=== PATIENT | female | born 1930 | race Caucasian/White ===

== ENCOUNTER 2018-03-07 12:58 | Inpatient (IN) | payer OTHER ==
[2018-03-07] MEDS ORDERED: ALBUTEROL 2.5 MG/3 ML NEB SOL ONE (13:28)
--- NOTE | 2018-03-07 13:52 | RAD REPORT ---
EXAM DESCRIPTION: RAD - Chest Single View - 03/07/2018 1:24 pm CLINICAL HISTORY: COUGH Chest pain. COMPARISON: None FINDINGS: Portable technique limits examination quality. Ill-defined opacity is present in the medial right lung base and right mid lung, suspicious for pneum onia or aspiration. The heart is normal in size. No displaced fractures.Aortic atherosclerosis.
[2018-03-07 14:11] LABS: Absolute Lymphocytes (CBC) 1.9 K/uL (0.7-4.9); Absolute Monocytes 1.8 K/uL (0.1-1.3); Absolute Neutrophil 18.4 K/uL (1.8-8.0); Basophils % 0.2 % (0-1.3); Eosinophils % 0.1 % (0-4.4); Hematocrit 39.7 % (36.0-45.0); Lymphocytes % 8.5 % (15.3-44.8); MCH 30.3 pg (27.0-35.0); MCV 93.1 fL (80-100); MPV 9.5 fL (7.6-11.3); Monocytes % 8.1 % (3.3-12.3); Protime INR 1.11; RBC Red Blood Cell Count 4.27 M/uL (3.86-4.86)
[2018-03-07 14:44] LABS: ALT/SGPT 11 U/L (12-78); AST/SGOT 18 U/L (15-37); Albumin 1.9 g/dL (3.4-5.0); Alkaline Phosphatase 105 U/L (45-117); Amylase Level 59 U/L (25-115); BUN Blood Urea Nitrogen 27 mg/dL (7-18); Bicarbonate 31 mmol/L (21-32); Bilirubin Direct 0.2 mg/dL (0-0.2); Bilirubin Total 0.5 mg/dL (0.2-1.0); CKMB Creatine Kinase MB < 1.0 ng/mL (0.3-3.6); Creatine Phosphokinase 37 U/L (26-192); Glucose Level 145 mg/dL (74-106); Lipase 42 U/L (73-393); Potassium 4.3 mmol/L (3.5-5.1); Protein, Total 6.9 g/dL (6.4-8.2); Sodium Level 143 mmol/L (136-145)
[2018-03-07 14:49] LABS: Blood Morphology Comment NOT SEEN (NOT SEEN); Platelet Estimate ADEQ
[2018-03-07 14:59] LABS: Urine Blood 2+ (NEG); Urine Glucose NEGATIVE (NEG); Urine Protein 3+ (NEG); Urine Specific Gravity 1.025 (1.005-1.030)
[2018-03-07 15:04] LABS: Urine Bacteria >50 /HPF (<20); Urine RBC >50 /HPF (NONE SEEN)
[2018-03-07 15:05] LABS: Urine Mucus 1+ /HPF (NONE SEEN)
[2018-03-07] MEDS ORDERED: CLINDAMYCIN 900MG/D5W 900 MG/50 ML BAG IV ONE (15:05)
[2018-03-07] MEDS ORDERED: levoFLOXacin 750 MG TAB ONE (15:05)
[2018-03-07] MEDS ORDERED: NA CHLORIDE 0.9% 500 ML ONE (15:05)
[2018-03-07] MEDS ORDERED: NA CHLORIDE 0.9% 1,000 ML ONE (15:06)
[2018-03-07 15:08] LABS: Urine Culture Reflex Order NOT NEEDED
--- NOTE | 2018-03-07 15:47 | ER ---
Nurse's Notes [facility] Name: Roselia Boyle Age: 87 yrs Sex: Female : 1930 Arrival Date: 03/07/2018 Time: 13:07 Bed 14 Private MD: Diagnosis: Pneumonia, unspecified organism;hypoxia Presentation: 03/07 12:57 Presenting complaint: EMS states: EMS was called out due to AMS worse than normal and rb1 breathing difficulties. Pt. is 87 yr. from [facility]. Pt. is A \T\ O x 1-2, right now she is A \T\ O x 2. Was running fever yesterday, the facility did a CXR and it showed patchy infiltrations. Pt. was 83% on RA, administered Albuterol/Atrovent nebulizer, Solu-Medrol 125 mg IVP. HR is sinus tachycardia, cough with thick green sputum. 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 Presenting complaint: EMS states: 20 G L AC. Transition of care: patient was received from another setting of care (long-term care facility), [facility]. Onset of symptoms is unknown. Risk Assessment: Do you want to hurt yourself or someone else? Patient reports no desire to harm self or others. Care prior to arrival: Medication(s) given: Albuterol Neb Atrovent Neb Solu-Medrol 125 mg IVP. 12:57 Method Of Arrival: EMS: [facility] rb1 12:57 Acuity: HANS 3 rb1 12:57 Initial Sepsis Screen: Does the patient meet any 2 criteria? RR > 20 per min. Altered rb1 Mental Status. HR > 90 bpm. Yes Does the patient have a suspected source of infection? Yes: Productive cough/pneumonia If YES to both, name of provider notified: Estelle Carrillo SPRINKLER INSTALLER. Triage Assessment: 12:57 General: Appears in no apparent distress. Behavior is calm, cooperative, Reports fever rb1 for. Pain: Denies pain. EENT: Reports bilateral blindness. Neuro: Level of Consciousness is awake, obeys commands, Oriented to person, place. Cardiovascular: Capillary refill < 3 seconds is brisk in bilateral fingers Rhythm is sinus tachycardia. Respiratory: Airway is patent Respiratory effort is even, labored, Respiratory pattern is symmetrical. GI: No signs and/or symptoms were reported involving the gastrointestinal system. : Wears a brief. Derm: Skin is pink, warm \T\ dry. Historical: - Allergies: 15:26 PENICILLINS; iw - Home Meds: 15:26 dorzolamide 2 % ophthalmic drop twice a day [Active]; Exelon 6 mg Oral cap 1 cap 2 iw times per day [Active]; hydrocortisone 1 % Topical crea 2 times per day [Active]; Levaquin 500 mg Oral tab 1 tab once daily [Active]; levothyroxine 75 mcg tab 1 tab once daily [Active]; lisinopril 2.5 mg Oral tab 1 tab once daily [Active]; loratadine 10 mg oral tab 1 tab once daily [Active]; lorazepam 0.5 mg Oral tab 1 tab 2 times per day [Active]; Lumigan 0.01 % ophthalmic drop nightly [Active]; melatonin 3 mg Oral tab nightly [Active]; Acidophilus Oral cap daily [Active]; aspirin 81 mg Oral TbEC 1 tab once daily [Active]; Colace 100 mg oral cap 1 cap 2 times per day [Active]; Combigan 0.2-0.5 % ophthalmic drop 1 drop every 12 hours [Active]; Depakote Sprinkles 125 mg Oral cpSP twice a day [Active]; Miralax 17 gram Oral pwpk 1 packet once daily [Active]; Restasis 0.05 % ophthalmic dpet as needed [Active]; sennosides 8.6 mg oral tab 2 tabs once daily [Active]; Seroquel 25 mg Oral tab nightly [Active]; sertraline 100 mg oral tab 1 tab once daily [Active]; acetaminophen-codeine 300-30 mg Oral tab 1 tab every 4 hours [Active]; - PMHx: 15:26 Dementia; IBS; Glaucoma; Hypothyroidism; Depression; Anxiety; iw - PSHx: 16:54 rakesh knees; iw - Immunization history:: Adult Immunizations up to date. - Social history:: Smoking status: Patient/guardian denies using tobacco. - Ebola Screening: : Patient negative for fever greater than or equal to 101.5 degrees Fahrenheit, and additional compatible Ebola Virus Disease symptoms Patient denies exposure to infectious person Patient denies travel to an Ebola-affected area in the 21 days before illness onset No symptoms or risks identified at this time. Screenin:55 Abuse screen: Denies threats or abuse. Denies injuries from another. Nutritional iw screening: No deficits noted. Tuberculosis screening: No symptoms or risk factors identified. Fall Risk IV access (20 points). Assessment: 12:57 General: See triage assessment.. rb1 13:48 Reassessment: Patient appears in no apparent distress at this time. Patient and/or rb1 family updated on plan of care and expected duration. Pain level reassessed. Patient is alert, oriented x 3, equal unlabored respirations, skin warm/dry/pink. Patient denies pain at this time. 14:47 Reassessment: Patient appears in no apparent distress at this time. No changes from rb1 previously documented assessment. 15:49 General: Appears uncomfortable, ill, Behavior is cooperative. Neuro: Level of iw Consciousness is awake, obeys commands. Cardiovascular: Patient's skin is warm and dry. Respiratory: Airway is patent Respiratory effort is even, labored, Respiratory pattern is tachypnea Breath sounds are diminished in right middle lobe and right lower lobe. Derm: Skin is normal. 16:33 Reassessment: Patient appears in no apparent distress at this time. Patient and/or rb1 family updated on plan of care and expected duration. Pain level reassessed. Patient is alert, oriented x 3, equal unlabored respirations, skin warm/dry/pink. 17:07 Reassessment: Called report to NAWAF Nash. Information from the SBAR was given. Informed rb1 that sputum culture had not been collected yet and that I was sending the Vancomycin IV antibiotics to the floor with the pt because it had been brought to the ED. Also informed NAWAF Nash that I initiated the Sepsis Green Sheet and would be sending that to the floor also. Pt. currently has Zosyn 3.375 IV infusing at this time. All questions asked and answered. 17:21 Reassessment: Patient appears in no apparent distress at this time. No changes from rb1 previously documented assessment. Pt. is coughing but unable to spit up the sputum. Vital Signs: 13:00 BP 125 / 65; Pulse 100; Resp 26; Temp 98.3(A); Pulse Ox 93% on Nebulizer Mask; Pain rb1 0/10; 14:00 BP 113 / 64; Pulse 102; Resp 27; Pulse Ox 93% on 4% Simple Mask; rb1 15:00 BP 120 / 62; Pulse 103; Resp 25; Pulse Ox 92% on 4 lpm NC; rb1 15:51 BP 121 / 55; Pulse 104; Resp 26 S; Temp 97.8(TE); Pulse Ox 92% on 2 lpm NC; Pain 0/10; iw 16:17 Weight 102.06 kg; Height 5 ft. 5 in. (165.10 cm); iw 16:45 BP 103 / 65; Pulse 100; Resp 28; Pulse Ox 93% on 2 lpm NC; rb1 17:00 BP 118 / 70; Pulse 100; Resp 26; Pulse Ox 93% on R/A; Pain 0/10; rb1 16:17 Body Mass Index 37.44 (102.06 kg, 165.10 cm) iw ED Course: 12:57 Arm band placed on right wrist. rb1 12:57 Patient has correct armband on for positive identification. Placed in gown. Bed in low rb1 position. Call light in reach. Side rails up X2. panel monitor on. Pulse ox on. NIBP on. Warm blanket given. 12:57 Maintain EMS IV. Dressing intact. Good blood return noted. Site clean \T\ dry. Gauge \T\ rb 1 site: 20 G L AC. 13:07 Patient arrived in ED. rh1 13:07 Estelle Carrillo NP is PHCP. rh1 13:07 Chase Gould MD is Attending Physician. rh1 13:14 Ofelia Louis, RN is Primary Nurse. rb1 13:20 Triage completed. rb1 13:24 Chest Single View XRAY In Process Unspecified. EDMS 13:38 X-ray completed. Portable x-ray completed in exam room. Patient tolerated procedure la2 well. 14:07 First set of blood cultures drawn by ED staff, by venipuncture 23G to right wrist. dh3 14:15 lactate drawn by mi and sent to lab. dh3 14:22 Second set of blood cultures drawn by mi, by venipuncture 23G to right hand. dh3 14:48 Urine collected: straight cath specimen, cloudy, penelope colored, sediment noted. dh3 15:01 EKG done, by ED staff, reviewed by Estelle Carrillo SPRINKLER INSTALLER. dh3 15:46 Preeti Carlin MD is Hospitalizing Provider. rh1 17:26 No provider procedures requiring assistance completed. Patient admitted, IV remains in rb1 place. Administered Medications: 13:20 Drug: Albuterol 2.5 mg Route: Inhalation; rb1 13:45 Drug: Albuterol 2.5 mg Route: Inhalation; rb1 14:12 Drug: Albuterol 2.5 mg Route: Inhalation; rb1 14:57 CANCELLED (Physician Discretion): NS 0.9% 1000 ml IV at 75 ml/hr continuous rh1 15:10 Drug: Clindamycin 900 mg Route: IVPB; Infused Over: 30 mins; Site: left antecubital; rb1 15:44 Follow up: IV Status: Completed infusion rb1 15:44 Follow up: Response: No adverse reaction rb1 15:10 Drug: LevaQUIN 750 mg Route: PO; rb1 15:48 Follow up: Response: No adverse reaction rb1 15:10 Drug: NS 0.9% 250 ml Route: IV; Rate: 500 ml/hr; Site: left antecubital; rb1 15:40 Follow up: IV Status: Completed infusion rb1 15:48 Drug: NS 0.9% 1000 ml Route: IV; Rate: 75 ml/hr; Site: left antecubital; iw 17:26 Follow up: IV Status: Infusion continued upon admission rb1 Point of Care Testing: Blood Glucose: 13:36 Blood Glucose: 130 mg/dL; rb1 Ranges: Outcome: 15:47 Decision to Hospitalize by Provider. rh1 17:26 Patient left the ED. rb1 17:26 Admitted to Tele accompanied by tech, via stretcher, room 425, with oxygen, with chart, rb1 Report called to NAWAF Nash 17:26 Condition: stable 17:26 Instructed on the need for admit. Signatures: Dispatcher [employer] Shana Ramos RN RN iw Jones, Rachel, NP SPRINKLER INSTALLER rh1 Ofelia Louis RN RN rb1 Almita Rodriguez [address] [place] Corrections: (The following items were deleted from the chart) 15:56 15:51 BP 121 / 55; Pulse 104bpm; Resp 26bpm; Spontaneous; Pulse Ox 92% RA; Temp 97.8F iw Temporal; Pain 0/10; iw 17:39 17:07 Reassessment: Called report to NAWAF Nash. Information from the SBAR was given. rb1 Informed that sputum culture had not been collected yet and that I was sending the Vancomycin IV antibiotics to the floor with the pt because it had been brought to the ED. Pt. currently has Zosyn 3.375 IV infusing at this time. All questions asked and answered. rb1
--- NOTE | 2018-03-07 15:48 | EDPHYS ---
Physician Documentation [facility] Name: Roselia Boyle Age: 87 yrs Sex: Female : 1930 Arrival Date: 03/07/2018 Time: 13:07 Bed 14 Private MD: ED Physician Chase Gould HPI: 03/07 13:07 This 87 yrs old Female presents to ER via EMS with complaints of cough, fever.rh1 13:07 The patient or guardian reports cough, described as moderate, hypoxia on RA. Onset: The rh1 symptoms/episode began/occurred yesterday. Modifying factors: The symptoms are alleviated by nothing. the symptoms are aggravated by nothing. Associated signs and symptoms: Pertinent positives: fever, Pertinent negatives: chest pain, vomiting. Severity of symptoms: At their worst the symptoms were moderate in the emergency department the symptoms are unchanged. It is unknown whether or not the patient has had similar symptoms in the past. It is unknown whether or not the patient has recently seen a physician. She was sent from [place], she reports for fever and coughing. Per EMS report she had a chest xray yesterday showing possible right infiltrate, was started on oral levaquin, but has not improved today. Her O2 sat on RA was 86%, and increased with neb treatment and O2 via EMS.. Historical: - Allergies: 15:26 PENICILLINS; iw - Home Meds: 15:26 dorzolamide 2 % ophthalmic drop twice a day [Active]; Exelon 6 mg Oral cap 1 cap 2 iw times per day [Active]; hydrocortisone 1 % Topical crea 2 times per day [Active]; Levaquin 500 mg Oral tab 1 tab once daily [Active]; levothyroxine 75 mcg tab 1 tab once daily [Active]; lisinopril 2.5 mg Oral tab 1 tab once daily [Active]; loratadine 10 mg oral tab 1 tab once daily [Active]; lorazepam 0.5 mg Oral tab 1 tab 2 times per day [Active]; Lumigan 0.01 % ophthalmic drop nightly [Active]; melatonin 3 mg Oral tab nightly [Active]; Acidophilus Oral cap daily [Active]; aspirin 81 mg Oral TbEC 1 tab once daily [Active]; Colace 100 mg oral cap 1 cap 2 times per day [Active]; Combigan 0.2-0.5 % ophthalmic drop 1 drop every 12 hours [Active]; Depakote Sprinkles 125 mg Oral cpSP twice a day [Active]; Miralax 17 gram Oral pwpk 1 packet once daily [Active]; Restasis 0.05 % ophthalmic dpet as needed [Active]; sennosides 8.6 mg oral tab 2 tabs once daily [Active]; Seroquel 25 mg Oral tab nightly [Active]; sertraline 100 mg oral tab 1 tab once daily [Active]; acetaminophen-codeine 300-30 mg Oral tab 1 tab every 4 hours [Active]; - PMHx: 15:26 Dementia; IBS; Glaucoma; Hypothyroidism; Depression; Anxiety; iw - PSHx: 16:54 rakesh knees; iw - Immunization history:: Adult Immunizations up to date. - Social history:: Smoking status: Patient/guardian denies using tobacco. - Ebola Screening: : Patient negative for fever greater than or equal to 101.5 degrees Fahrenheit, and additional compatible Ebola Virus Disease symptoms Patient denies exposure to infectious person Patient denies travel to an Ebola-affected area in the 21 days before illness onset No symptoms or risks identified at this time. ROS: 13:07 Cardiovascular: Negative for chest pain, palpitations, and edema. rh1 13:07 Constitutional: Positive for fever, malaise. 13:07 Respiratory: Positive for cough, wheezing. 13:07 Abdomen/GI: Negative for abdominal pain, vomiting. 13:07 Skin: Negative for diaphoresis, rash. 13:07 Neuro: Negative for altered mental status. Exam: 13:07 Constitutional: This is a well developed, well nourished patient who is awake, and in rh1 no acute distress. Head/Face: Normocephalic, atraumatic. 13:07 Neck: Trachea midline, and no cervical lymphadenopathy. Supple, full range of motion without nuchal rigidity. No Meningismus. Chest/axilla: Normal chest wall appearance and motion. Nontender with no deformity. No lesions are appreciated. Cardiovascular: Regular rate and rhythm with a normal S1 and S2. No gallops, murmurs, or rubs. No JVD. No pulse deficits. 13:07 Abdomen/GI: Soft, non-tender, with normal bowel sounds. No distension. No guarding or rebound. No evidence of tenderness throughout. Back: No spinal tenderness. No costovertebral tenderness. Full range of motion. 13:07 Skin: Warm, dry with normal turgor. Normal color with no rashes, no lesions, and no evidence of cellulitis. MS/ Extremity: Pulses equal, no cyanosis. Neurovascular intact. Full, normal range of motion. 13:07 Eyes: bilateral pupils fixed, minimally reactive, with thick yellow drainage from bilateral eyes; reports hx of glaucoma, with bilateral blindness. 13:07 ENT: Mouth: Lips: dry, cracked, Oral mucosa: dry, Tongue: dry, without lesions, Posterior pharynx: is normal, airway is patent, no erythema, no exudate. 13:07 Respiratory: the patient does not display signs of respiratory distress, Respirations: labored breathing, that is mild, accessory muscle usage, is absent, grunting, is not present, paradoxical chest movement, is absent, prolonged exhalation, that is mild, pursed lip breathing, is not present, intercostal retractions, are absent, tachypnea, mild - moderate tachypnea, rate 24 - 28, Breath sounds: decreased breath sounds, that are moderate, are located in both bases, rhonchi, that are moderate, are located in both bases, right > left, wheezing: expiratory that is moderate, is heard diffusely. 13:07 Abdomen/GI: Inspection: bruising, is not seen, distension, is not seen. 13:07 Back: Exam negative for ecchymosis vertebral tenderness. 13:07 Neuro: Orientation: to person, place, situation, Not oriented to time, Mentation: no acute changes, per family, lucid, able to follow commands, Motor: moves all fours, Strength is 3/5 in the right arm, left arm, right leg and left leg, Sensation: is normal, no obvious gross deficits. 13:07 Neuro: overall answers questions appropriately, appears lethargic. Vital Signs: 13:00 BP 125 / 65; Pulse 100; Resp 26; Temp 98.3(A); Pulse Ox 93% on Nebulizer Mask; Pain rb1 0/10; 14:00 BP 113 / 64; Pulse 102; Resp 27; Pulse Ox 93% on 4% Simple Mask; rb1 15:00 BP 120 / 62; Pulse 103; Resp 25; Pulse Ox 92% on 4 lpm NC; rb1 15:51 BP 121 / 55; Pulse 104; Resp 26 S; Temp 97.8(TE); Pulse Ox 92% on 2 lpm NC; Pain 0/10; iw 16:17 Weight 102.06 kg; Height 5 ft. 5 in. (165.10 cm); iw 16:45 BP 103 / 65; Pulse 100; Resp 28; Pulse Ox 93% on 2 lpm NC; rb1 17:00 BP 118 / 70; Pulse 100; Resp 26; Pulse Ox 93% on R/A; Pain 0/10; rb1 16:17 Body Mass Index 37.44 (102.06 kg, 165.10 cm) iw MDM: 13:07 Patient medically screened. rh1 13:35 ED course: Pt. son, victoria, at bedside, reports over the past 3 days she has had a rh1 cough, and today began with fever. Last night she was weak, and has not been wanting to eat. He is not sure if she has gotten any abx as of yet. 14:50 Response to treatment: the patient's symptoms have mildly improved after treatment, she rh1 reports her breathing is improved after breathing tx. 15:45 Data reviewed: vital signs, nurses notes, half-way records, lab test result(s), rh1 EKG, radiologic studies, plain films, and as a result, I will admit patient. Data interpreted: Pulse oximetry: on room air is 94 %. Interpretation: normal. Counseling: I had a detailed discussion with the patient and/or guardian regarding: the historical points, exam findings, and any diagnostic results supporting the discharge/admit diagnosis, lab results, radiology results, the need for further work-up and treatment in the hospital. Physician consultation: Preeti Carlin MD was called at 15:45, was contacted at 15:45, regarding admission, and will see patient in ED, shortly. 03/07 13:08 Order name: Sputum Culture 03/07 13:08 Order name: Amylase, Serum 03/07 13:08 Order name: Basic Metabolic Panel 03/07 13:08 Order name: Blood Culture Adult (2) 03/07 13:08 Order name: CBC with Diff 03/07 13:08 Order name: Ckmb 03/07 13:08 Order name: CPK; Complete Time: 14:50 03/07 13:08 Order name: Lactate; Complete Time: 14:50 [facility] 03/07 13:08 Order name: LFT's; Complete Time: 14:50 [facility] 03/07 13:08 Order name: Lipase; Complete Time: 14:50 [facility] 03/07 13:08 Order name: Procalcitonin; Complete Time: 14:50 [facility] 03/07 13:08 Order name: Protime (+inr); Complete Time: 14:29 [facility] 03/07 13:08 Order name: Ptt, Activated; Complete Time: 14:29 [facility] 03/07 13:08 Order name: Troponin (emerg Dept Use Only); Complete Time: 14:30 [facility] 03/07 13:08 Order name: Chest Single View XRAY; Complete Time: 13:58 [facility] 03/07 13:09 Order name: Sputum Culture [facility] 03/07 13:09 Order name: Amylase Level; Complete Time: 14:50 [facility] 03/07 13:09 Order name: Basic Metabolic Panel; Complete Time: 14:50 [facility] 03/07 13:09 Order name: Blood Culture [facility] 03/07 13:09 Order name: CBC with Automated Diff; Complete Time: 14:50 [facility] 03/07 13:09 Order name: CKMB Creatine Kinase MB; Complete Time: 14:50 [facility] 03/07 13:34 Order name: TSH; Complete Time: 14:39 [facility] 03/07 14:43 Order name: Urine Microscopic Only; Complete Time: 15:10 [facility] 03/07 14:47 Order name: Manual Differential; Complete Time: 14:50 [facility] 03/07 14:50 Order name: Urine Dipstick--Ancillary (enter results); Complete Time: 15:10 03/07 15:49 Order name: Urine Culture [facility] 03/07 15:51 Order name: Influenza Screen (A [facility] 03/07 15:51 Order name: Group A Streptococcus Rapid Sc [facility] 03/07 13:08 Order name: Accucheck; Complete Time: 14:20 03/07 13:08 Order name: Cardiac monitoring; Complete Time: 14:20 [facility] 03/07 13:08 Order name: EKG - Nurse/Tech; Complete Time: 15:01 [facility] 03/07 13:08 Order name: IV Saline Lock - Large Bore; Complete Time: 13:23 03/07 13:08 Order name: Labs collected and sent; Complete Time: 14:20 03/07 13:08 Order name: O2 Per Protocol; Complete Time: 14:20 03/07 13:08 Order name: O2 Sat Monitoring; Complete Time: 14:20 03/07 13:08 Order name: Urine Dipstick-Ancillary (obtain specimen); Complete Time: 14:20 03/07 14:09 Order name: Straight Cath; Complete Time: 14:41 03/07 14:09 Order name: Vital Signs; Complete Time: 14:20 rh1 Administered Medications: 13:20 Drug: Albuterol 2.5 mg Route: Inhalation; rb1 13:45 Drug: Albuterol 2.5 mg Route: Inhalation; rb1 14:12 Drug: Albuterol 2.5 mg Route: Inhalation; rb1 14:57 CANCELLED (Physician Discretion): NS 0.9% 1000 ml IV at 75 ml/hr continuous rh1 15:10 Drug: Clindamycin 900 mg Route: IVPB; Infused Over: 30 mins; Site: left antecubital; rb1 15:44 Follow up: IV Status: Completed infusion rb1 15:44 Follow up: Response: No adverse reaction rb1 15:10 Drug: LevaQUIN 750 mg Route: PO; rb1 15:48 Follow up: Response: No adverse reaction rb1 15:10 Drug: NS 0.9% 250 ml Route: IV; Rate: 500 ml/hr; Site: left antecubital; rb1 15:40 Follow up: IV Status: Completed infusion rb1 15:48 Drug: NS 0.9% 1000 ml Route: IV; Rate: 75 ml/hr; Site: left antecubital; iw 17:26 Follow up: IV Status: Infusion continued upon admission rb1 Point of Care Testing: Blood Glucose: 13:36 Blood Glucose: 130 mg/dL; rb1 Ranges: Critical Glucose Levels:Adult <50 mg/dl or >400 mg/dl <40 mg/dl or >180 mg/dl Disposition: 17:46 Co-signature as Attending Physician, Chase Gould MD I agree with the assessment and kdr plan of care. Disposition: 03/07/18 15:47 Hospitalization ordered by Preeti Carlin for Inpatient Admission. Preliminary diagnosis are Pneumonia, unspecified organism, hypoxia. - Bed requested for Telemetry/MedSurg (Inpatient). - Status is Inpatient Admission. rb1 - Condition is Stable. - Problem is new. - Symptoms have improved. UTI on Admission? Yes Signatures: Dispatcher [employer] EDNY Chase Gould MD MD [facility] Shana Montana RN RN iw Estelle Carrillo, CARDIAC MONITOR CARDIAC MONITOR rh1 Ofelia Louis RN RN rb1 Sulema Shepard Corrections: (The following items were deleted from the chart) 14:48 14:22 CBC Smear Scan ordered. [facility] 14:50 13:35 ED course: Pt. son, victoria, at bedside, reports over the past 3 days she has had a rh1 cough, and today began with fever. Last night she was weak, and has not been wanting to eat. [facility] 14:50 13:07 She was sent from [place], she reports for fever. Per EMS report she had a chest rh1 xray showing possible right infiltrate, was started on abx, but has not improved today. Her O2 sat on RA was 86%, and increased with neb treatment and O2 via EMS.. rh1 14:57 14:56 NS 0.9% 1000 ml IV at 75 ml/hr continuous ordered. [facility] rh 16:00 15:47 Hospitalization Ordered by Preeti Carlin MD for Inpatient Admission. Preliminary eb diagnosis is Pneumonia, unspecified organism; hypoxia. Bed requested for Telemetry/MedSurg (Inpatient). Status is Inpatient Admission. Condition is Stable. Problem is new. Symptoms have improved. UTI on Admission? Yes. [facility] 16:09 16:00 03/07/2018 15:47 Hospitalization Ordered by Preeti Carlin MD for Inpatient eb Admission. Preliminary diagnosis is Pneumonia, unspecified organism; hypoxia. Bed requested for Telemetry/MedSurg (Inpatient). Status is Inpatient Admission. Condition is Stable. Problem is new. Symptoms have improved. UTI on Admission? Yes. eb 17:26 16:09 03/07/2018 15:47 Hospitalization Ordered by Preeti Carlin MD for Inpatient rb1 Admission. Preliminary diagnosis is Pneumonia, unspecified organism; hypoxia. Bed requested for Telemetry/MedSurg (Inpatient). Status is Inpatient Admission. Condition is Stable. Problem is new. Symptoms have improved. UTI on Admission? Yes. eb
--- NOTE | 2018-03-07 15:56 | P.HP ---
Certification for Inpatient Patient admitted to: Inpatient With expected LOS: >2 Midnights Patient will require the following post-hospital care: None Practitioner: I am a practitioner with admitting privileges, knowledge of patient current condition, hospital course, and medical plan of care. Services: Services provided to patient in accordance with Admission requirements found in Title 42 Section 412.3 of the Code of Federal Regulations Patient History Date of Service: 03/07/18 Primary Care Provider: [facility] - [place] Reason for admission: Sepsis History of Present Illness: This 87-year-old female with significant past medical history of hypertension, dementia, schizophrenia, anxiety, depression, agitation, who presented to the ED from the custodial with Guillermo after she was found to have generalized weakness chills coughing and general ill appearing demeanor. Patient has been having cough that has been productive in nature and has been greenish-yellow for past 2-3 days which has been getting progressively worse. Patient has also been getting dyspneic while at the custodial. She was having saturations of 80-88% on room air at the custodial. EMS was called and patient was thus brought over to the hospital for further care. Of note patient had lab work done yesterday along with CBC CMP any urine culture was done for concerns of UTI. Urine culture was positive for 4+ beta-hemolytic group B streptococcus subjective the is pending at this time. Patient at baseline is demented in generally alert and oriented times only to with intermittent confusion. Patient at baseline also has schizophrenia anxiety and depression because of which she usually gets agitated and restless. Patient lives at the custodial with Guillermo and has been doing well overall prior to this episode. No other associated symptoms at this time. In the ER patient had extensive lab work and imaging done. Patient was found to have sepsis secondary to pneumonia on the x-ray in urinary tract infection and thus was referred over for admission. Allergies Penicillins Allergy (Intermediate, Verified 03/07/18 16:22) Rash - Past Medical/Surgical History Has patient received pneumonia vaccine in the past: Yes Diabetic: No -: HTN -: Dementia -: Mental Illness Past Surgical History: Reviewed- Non-Contributory - Family History Family History: Reviewed- Non-Contributory - Social History Smoking Status: Never smoker Smoking therapy provided: No Patient receptive to therapy: No Alcohol use: No CD- Drugs: No Caffeine use: No Place of Residence: [facility] Review of Systems General: As per HPI Physical Examination - Physical Exam General: Alert, Oriented x2, Demented, Other (Ill appearing Elderly Female) HEENT: Atraumatic Neck: Supple, 2+ carotid pulse no bruit, No LAD, Without JVD or thyroid abnormality Respiratory: Normal air movement, Crackles/rales, Rhonchi/gurgles Cardiovascular: Regular rate/rhythm, Normal S1 S2 Gastrointestinal: Normal bowel sounds, Soft and benign, Non-distended, No tenderness Musculoskeletal: No tenderness Integumentary: No rashes Neurological: Normal speech, Abnormal strength, Abnormal tone Lymphatics: No axilla or inguinal lymphadenopathy - Studies Laboratory Data (last 24 hrs) 03/07/18 13:45: PT 13.1 H, INR 1.11, APTT 21.3 L 03/07/18 13:45: WBC 22.1 H*, Hgb 12.9, Hct 39.7, Plt Count 172 03/07/18 13:45: Sodium 143, Potassium 4.3, BUN 27 H, Creatinine 1.00, Glucose 145 H, Total Bilirubin 0.5, AST 18, ALT 11 L, Alkaline Phosphatase 105, Amylase 59, Lipase 42 L Assessment and Plan - Problems (Diagnosis) (1) Sepsis Current Visit: Yes Status: Acute Plan: Sepsis most likely 2.2 to UTI and PNA -PNA: Sputum Culture collected, flu and Strep test pending, IV vanc and zosyn, Pulmonology consulted. -UTI: Urine Culture from 03/06 + for group B Beta hemolytic. IV vanc and zosyn -Hypodermically stable -F.u with Lab and culture -PT/OT and speech consulted. Qualifiers: Sepsis type: sepsis due to unspecified organism Qualified Code(s): A41.9 - Sepsis, unspecified organism (2) PNA (pneumonia) Current Visit: Yes Status: Acute Plan: See # 1 Qualifiers: Pneumonia type: due to unspecified organism Laterality: right Lung location: lower lobe of lung Qualified Code(s): J18.1 - Lobar pneumonia, unspecified organism (3) UTI (urinary tract infection) Current Visit: Yes Status: Acute Plan: See # 1 Qualifiers: Urinary tract infection type: acute cystitis Hematuria presence: without hematuria Qualified Code(s): N30.00 - Acute cystitis without hematuria (4) HTN (hypertension) Current Visit: Yes Status: Chronic Plan: Restart Home medication Qualifiers: Hypertension type: essential hypertension Qualified Code(s): I10 - Essential (primary) hypertension (5) Schizophrenia Current Visit: Yes Status: Chronic Plan: Restart Home medication Qualifiers: Schizophrenia type: other Qualified Code(s): F20.89 - Other schizophrenia; F20.8 - Other schizophrenia (6) Dementia Current Visit: Yes Status: Acute Plan: Stable Qualifiers: Dementia type: unspecified type Dementia behavioral disturbance: without behavioral disturbance Qualified Code(s): F03.90 - Unspecified dementia without behavioral disturbance Discharge Plan: [facility] Plan to discharge in: 72 Hours - Advance Directives Does patient have a Living Will: No Does patient have a Durable POA for Healthcare: No - Code Status/Comfort Care Code Status Assessed: Yes Critical Care: No
[2018-03-07] MEDS ORDERED: PIPER/TAZO/NS 3.375gm 3.375 GM/100 ML BAG IV ONE (16:15)
[2018-03-07] MEDS ORDERED: VANCOMYCIN 2 GM in NA CHLORIDE 0.9% 500 ML IVPB ONE (17:00)
[2018-03-07] MEDS ORDERED: ONDANSETRON 4 MG/2 ML VIAL IV PRN (17:49)
[2018-03-07] MEDS: NA CHLORIDE 0.9% 1,000 ML IV SCH (17:49)
[2018-03-07] MEDS ORDERED: ACETAMINOPHEN 500 MG TAB PO PRN (17:49)
[2018-03-07] MEDS ORDERED: VANCOMYCIN 500 MG in NA CHLORIDE 0.9% 100 ML IVPB ONE (18:30)
[2018-03-07] MEDS ORDERED: VANCOMYCIN 500 MG/VIAL ONE (22:50)
[2018-03-07] MEDS ORDERED: NA CHLORIDE 0.9% 100 ML ONE (22:50)
[2018-03-08] MEDS: PIPER/TAZO/NS 3.375gm 3.375 GM/100 ML BAG IV SCH ×3 (00:33→17:09)
[2018-03-08] MEDS ORDERED: PIPER/TAZO/NS 3.375gm 3.375 GM/100 ML BAG IV SCH (01:00)
[2018-03-08] MEDS: NA CHLORIDE 0.9% 1,000 ML IV SCH (03:49)
[2018-03-08] MEDS ORDERED: LORazepam 2 MG/ML VIAL IV ONE ×2 (04:26→22:08)
[2018-03-08 04:42] LABS: Absolute Lymphocytes (CBC) 1.1 K/uL (0.7-4.9); Absolute Monocytes 0.7 K/uL (0.1-1.3); Absolute Neutrophil 14.1 K/uL (1.8-8.0); Basophils % 0.1 % (0-1.3); Hematocrit 36.9 % (36.0-45.0); Lymphocytes % 6.8 % (15.3-44.8); MCH 30.1 pg (27.0-35.0); MCV 93.1 fL (80-100); MPV 9.4 fL (7.6-11.3); Monocytes % 4.7 % (3.3-12.3); RBC Red Blood Cell Count 3.97 M/uL (3.86-4.86)
[2018-03-08 04:51] LABS: Albumin 1.8 g/dL (3.4-5.0); Bilirubin Total 0.4 mg/dL (0.2-1.0); Magnesium 2.2 mg/dL (1.8-2.4); Phosphorus 2.6 mg/dL (2.5-4.9); Potassium 4.3 mmol/L (3.5-5.1); Protein, Total 6.2 g/dL (6.4-8.2)
--- NOTE | 2018-03-08 09:33 | EKG ---
Test Date: 2018-03-07 Test Time: 14:55:56 Staff Certified Nurse Midwife: [place] MEASUREMENT RESULTS: Intervals: Rate: 105 MN: 126 QRSD: 96 QT: 360 QTc: 475 [place]: P: -77 MN: 126 QRS: -17 T: 46 INTERPRETIVE STATEMENTS: Unusual P axis and short MN, probable junctional tachycardia with occasional premature ventricular complexes Septal infarct, age undetermined Abnormal ECG No previous ECG available for comparison Electronically Signed On 03-08-18 09:32:02 CDT by Vinnie Esquivel
[2018-03-08] MEDS ORDERED: LORATADINE 10 MG TAB PO PRN (11:40)
[2018-03-08] MEDS ORDERED: DOCUSATE NA 100 MG CAP PO PRN (11:40)
[2018-03-08] MEDS ORDERED: HOME MED 1 EA UNK (Polyethylene Glycol 3350 [Miralax] 17 GM) PO PRN (11:40)
[2018-03-08] MEDS ORDERED: SENOSIDES 8.6 MG TAB PO PRN (11:40)
[2018-03-08] MEDS ORDERED: ABH TOP PRN (11:40)
--- NOTE | 2018-03-08 11:43 | P.PN ---
Subjective Date of Service: 03/08/18 Primary Care Provider: [facility] Chief Complaint: Sepsis Patient seen and examined at bedside with RN. Case discussed with pulmonology. Currently patient is more alert and oriented then yesterday. He is feeling much better than before. No other complaints to offer. Still was coughing productive phlegm. No fever or chills noted overnight Review of Systems General: As per HPI Physical Examination - Vital Signs Temperature: 97.1 F Blood Pressure: 130/55 Pulse: 85 Respirations: 16 Pulse Ox (%): 85 - Physical Exam General: Alert, In no apparent distress, Oriented x3 HEENT: Atraumatic Neck: Supple, JVD not distended Respiratory: Normal air movement, Crackles/rales, Rhonchi/gurgles Cardiovascular: Regular rate/rhythm, Normal S1 S2 Gastrointestinal: Normal bowel sounds, No tenderness Musculoskeletal: No tenderness Integumentary: No rashes Neurological: Normal speech, Normal tone, Normal affect Lymphatics: No axilla or inguinal lymphadenopathy - Studies Laboratory Data (last 24 hrs) 03/07/18 13:45: PT 13.1 H, INR 1.11, APTT 21.3 L 03/07/18 13:45: WBC 22.1 H*, Hgb 12.9, Hct 39.7, Plt Count 172 03/07/18 13:45: Sodium 143, Potassium 4.3, BUN 27 H, Creatinine 1.00, Glucose 145 H, Total Bilirubin 0.5, AST 18, ALT 11 L, Alkaline Phosphatase 105, Amylase 59, Lipase 42 L Medications List Reviewed: Yes Assessment & Plan - Problems (Diagnosis) (1) Sepsis Current Visit: Yes Status: Acute Plan: Sepsis most likely 2.2 to UTI and PNA -PNA: Sputum Culture collected, flu and Strep test pending, IV vanc and zosyn, Pulmonology consulted. -UTI: Urine Culture from 03/06 + for group B Beta hemolytic. IV vanc and zosyn -Hypodermically stable -F.u with Lab and culture -PT/OT and speech consulted. Qualifiers: Sepsis type: sepsis due to unspecified organism Qualified Code(s): A41.9 - Sepsis, unspecified organism (2) PNA (pneumonia) Current Visit: Yes Status: Acute Plan: See # 1 Qualifiers: Pneumonia type: due to unspecified organism Laterality: right Lung location: lower lobe of lung Qualified Code(s): J18.1 - Lobar pneumonia, unspecified organism (3) UTI (urinary tract infection) Current Visit: Yes Status: Acute Plan: See # 1 Qualifiers: Urinary tract infection type: acute cystitis Hematuria presence: without hematuria Qualified Code(s): N30.00 - Acute cystitis without hematuria (4) HTN (hypertension) Current Visit: Yes Status: Chronic Plan: Restart Home medication Qualifiers: Hypertension type: essential hypertension Qualified Code(s): I10 - Essential (primary) hypertension (5) Schizophrenia Current Visit: Yes Status: Chronic Plan: Restart Home medication Qualifiers: Schizophrenia type: other Qualified Code(s): F20.89 - Other schizophrenia; F20.8 - Other schizophrenia (6) Dementia Current Visit: Yes Status: Acute Plan: Stable Qualifiers: Dementia type: unspecified type Dementia behavioral disturbance: without behavioral disturbance Qualified Code(s): F03.90 - Unspecified dementia without behavioral disturbance Discharge Plan: [facility] Plan to discharge in: 48 Hours - Code Status/Comfort Care Code Status Assessed: Yes Critical Care: No
[2018-03-08] MEDS ORDERED: POLYETHYL GLY 3350 17 GM/DOSE PO PRN (12:22)
--- NOTE | 2018-03-08 16:52 | RAD REPORT ---
EXAM DESCRIPTION: RAD - Chest Single View - 03/08/2018 3:50 pm CLINICAL HISTORY: Pneumonia COMPARISON: March 07 TECHNIQUE: AP portable chest image was obtained 1530 hours . FINDINGS: Lung volumes remain low. Patchy opacification in the mid right lung field is still present . Lung parenchymal markings in each base remain prominent, more so to the right. Trachea is midline. Heart and vasculature are normal. No measurable pleural effusion and no pneumothorax. No gross bony a bnormality seen. No acute aortic findings suspected. IMPRESSION: Suspected right lung field pneumonia findings are not significantly different from March 07.
[2018-03-08] MEDS: QUETIAPINE 25 MG TAB PO SCH (21:00)
[2018-03-08] MEDS ORDERED: RIVASTIGMINE TARTRATE 6 MG PO SCH (21:00)
[2018-03-08] MEDS: HOME MED 1 EA UNK (Brimonidine Tartrate/Timolol [Combigan 0.2%-0.5% Eye Drops] 1 DROP) OPTH SCH (21:00)
[2018-03-08] MEDS: DIVALPROEX NA 125 MG CAP PO SCH (21:00)
[2018-03-08] MEDS: DORZOLAMIDE HCL OPTH SCH (21:00)
[2018-03-08] MEDS ORDERED: RIVASTIGMINE TARTRATE 1.5 MG PO SCH (21:00)
[2018-03-08] MEDS ORDERED: BIMATOPROST OPHTH DROPS/2.5 ML BTL OPTH SCH (21:00)
[2018-03-08] MEDS: HOME MED 1 EA UNK (Cyclosporine [Restasis] 1 DROP) OPTH SCH (21:00)
[2018-03-08] MEDS ORDERED: LORAZEPAM 0.5 MG TABLET PO SCH (21:00)
[2018-03-09] MEDS: PIPER/TAZO/NS 3.375gm 3.375 GM/100 ML BAG IV SCH ×3 (01:41→18:48)
[2018-03-09] MEDS ORDERED: VANCOMYCIN 1.75 GM in NA CHLORIDE 0.9% 500 ML IVPB SCH (05:00)
[2018-03-09 05:29] LABS: Absolute Lymphocytes (CBC) 1.2 K/uL (0.7-4.9); Absolute Monocytes 0.9 K/uL (0.1-1.3); Absolute Neutrophil 13.7 K/uL (1.8-8.0); Basophils % 0.1 % (0-1.3); Eosinophils % 0.1 % (0-4.4); Hematocrit 36.5 % (36.0-45.0); Lymphocytes % 7.4 % (15.3-44.8); MCH 30.5 pg (27.0-35.0); MCV 92.8 fL (80-100); MPV 8.9 fL (7.6-11.3); Monocytes % 5.8 % (3.3-12.3); RBC Red Blood Cell Count 3.93 M/uL (3.86-4.86)
[2018-03-09 05:43] LABS: Albumin 1.8 g/dL (3.4-5.0); Bilirubin Total 0.4 mg/dL (0.2-1.0); Magnesium 2.5 mg/dL (1.8-2.4); Phosphorus 3.1 mg/dL (2.5-4.9); Potassium 4.2 mmol/L (3.5-5.1); Protein, Total 6.1 g/dL (6.4-8.2)
[2018-03-09] MEDS: LEVOTHYROXINE SOD 0.075 MG TAB PO SCH (06:00)
[2018-03-09 06:31] LABS: Blood Morphology Comment NOT SEEN (NOT SEEN); Platelet Estimate ADEQ
--- NOTE | 2018-03-09 08:17 | P.CNS ---
Date of Consult: 03/09/18 Primary Care Provider: [facility]ustodial residence - [place] Chief Complaint: Sepsis History of Present Illness: Patient is 87 years of age admitted with hypoxemia some fever patient resides at [place] significant coughing. Patient is unresponsive. Nonverbal History obtained from review of medical records in sick for the past 2-3 days apparently was doing well prior to this episode Allergies Penicillins Allergy (Intermediate, Verified 03/07/18 16:22) Rash Home Medications: Acetaminophen with Codeine [Tylenol with Codeine #3 Tablet] 1 tab PO Q4H PRN Acetaminophen with Codeine [Tylenol with Codeine #3 Tablet] 2 tab PO Q4H PRN Aspirin Chewable [Aspirin Chewable*] 81 mg PO DAILY 03/07/18 Bimatoprost [Lumigan Opthalmic Drops*] 1 drop OPTH BEDTIME 03/07/18 Brimonidine Tartrate/Timolol [Combigan 0.2%-0.5% Eye Drops] 1 drop OPTH BID Cyclosporine [Restasis] 1 drop OPTH BID 03/07/18 Divalproex [Depakote Sprinkle*] 1 cap PO BID 03/07/18 Docusate [Colace Cap*] 100 mg PO BID PRN 03/07/18 Dorzolamide HCl/Pf [Dorzolamide 2% Eye Drop] 1 drop OPTH BID 03/07/18 Hydrocortisone Cream [Hydrocortisone 1% Cream*] 1 shonna TOP BID 03/07/18 LORazepam [Ativan*] 0.5 mg PO BID 03/07/18 Lactobacillus Acidophilus [Acidophilus] 1 cap PO DAILY 03/07/18 Levothyroxine Sodium [Levoxyl] 75 mcg PO DAILY 03/07/18 Lisinopril [Zestril] 1 tab PO DAILY 03/07/18 Loratadine [Claritin*] 1 tab PO DAILY PRN 03/07/18 Melatonin [Melatonin*] 3 mg PO BEDTIME 03/07/18 Polyethylene Glycol 3350 [Miralax] 17 gm PO Q24H PRN 03/07/18 Quetiapine [Seroquel*] 1 tab PO BEDTIME 03/07/18 Rivastigmine Tartrate [Rivastigmine] 6 mg PO BID 03/07/18 Sennosides [Senna Laxative] 1 tab PO DAILY PRN 03/07/18 Sertraline HCl 100 mg PO DAILY 03/07/18 levoFLOXacin [Levaquin*] 500 mg PO DAILY 03/07/18 Abh Gel 1 shonna TOP Q8H PRN 03/08/18 - Past Medical/Surgical History Diabetic: No -: HTN -: Dementia -: Mental Illness -: glaucoma -: hypothyroidism -: blx knee surgery - Social History Alcohol use: No CD- Drugs: No Caffeine use: No Place of Residence: [facility]ust[facility]ial Review of Systems is unable to be obtained Physical Examination Temp Pulse Resp BP Pulse Ox 98.3 F 91 H 18 154/69 H 91 03/09/18 04:00 03/09/18 04:00 03/09/18 04:00 03/09/18 04:00 03/09/18 04:00 General: Unresponsive Respiratory: Clear to auscultation bilaterally Cardiovascular: No edema, Normal S1 S2 Gastrointestinal: Normal bowel sounds, Tenderness (Mine and generalized tenderness no rebound guarding positive bowel sound) Musculoskeletal: No clubbing, No swelling, No warmth Integumentary: No breakdown - Problems (1) Sepsis Onset Date: 03/09/18 Current Visit: Yes Status: Acute Plan: Patient is 87 years of age admitted with altered mental status hypoxemia abnormal chest x-ray. I suspect that she has a pneumonia white count is elevated although is decline patient is hypernatremic labs all reviewed currently on vancomycin and Zosyn vital signs stable sat is 94% on 4 years of order some ABGs blood cultures so far negative. Although patient is under is responsive appears to be comfortable Qualifiers: Sepsis type: sepsis due to unspecified organism Qualified Code(s): A41.9 - Sepsis, unspecified organism (2) Hypernatremia Current Visit: Yes Status: Acute Plan: Started patient on some D5 water
[2018-03-09] MEDS: ASPIRIN 81 MG CHEWABLE TABLET PO SCH (09:00)
[2018-03-09] MEDS: LACTOBACILLUS/ACIDOPHILUS TAB PO SCH (09:00)
[2018-03-09] MEDS: DORZOLAMIDE HCL OPTH SCH ×2 (09:00→21:00)
[2018-03-09] MEDS: HOME MED 1 EA UNK (Brimonidine Tartrate/Timolol [Combigan 0.2%-0.5% Eye Drops] 1 DROP) OPTH SCH ×2 (09:00→21:00)
[2018-03-09] MEDS: SERTRALINE HCL 100 MG TAB PO SCH (09:00)
[2018-03-09] MEDS: HOME MED 1 EA UNK (Cyclosporine [Restasis] 1 DROP) OPTH SCH ×2 (09:00→21:00)
[2018-03-09] MEDS ORDERED: LISINOPRIL PO SCH (09:00)
[2018-03-09] MEDS: DIVALPROEX NA 125 MG CAP PO SCH ×2 (09:00→21:00)
[2018-03-09] MEDS ORDERED: HOME MED 1 EA UNK (Lactobacillus Acidophilus [Acidophilus] 1 CAP) PO SCH (09:00)
[2018-03-09] MEDS ORDERED: LISINOPRIL 5 MG TAB PO SCH (09:00)
[2018-03-09] MEDS ORDERED: LORazepam 2 MG/ML VIAL IV SCH (09:00)
[2018-03-09] MEDS: D5W 1,000 ML IV SCH ×2 (09:04→21:45)
[2018-03-09 11:15] LABS: Arterial Blood Carboxyhemoglob 1.3 % (0-1.5); Blood Gas Oxyhemoglobin 88.6 % (94-97); Blood O2 Saturation 90.2 % (92-98.5)
[2018-03-09] MEDS ORDERED: ALBUTEROL 2.5 MG/3 ML NEB SOL NEB PRN (13:44)
[2018-03-09] MEDS ORDERED: IPRATROPIUM BROM 0.5MG/2.5ML NEB PRN (13:45)
[2018-03-09] MEDS ORDERED: LORazepam 2 MG/ML VIAL IM PRN (13:55)
--- NOTE | 2018-03-09 17:22 | PN ---
Date of Progress Note: 03/09/2018 Subjective: The patient seen and examined, chart reviewed, and case discussed with RN. The patient cooperative with history taking and physical exam due to her medical condition. Review of Systems: Limited due to patient's medical condition. Code Status: The patient is unable to see respond we will check records for code status and intermediate and obtain further information if medical power commercial real estate attorney is present. Medications: List reviewed. Physical Examination: Vital Signs: Temperature 97.9, heart rate 92, blood pressure 154/69, respirations 24, O2 91% on 2 L. General: Asleep, but arousable, ill-appearing female, OB, BMI 38.3, ill-appearing, frail. CV: S1 and S2. No murmurs. Respiratory: Moving air well bilaterally. No wheezing. Gastrointestinal: Abdomen is soft, nontender, nondistended. Positive bowel sounds. Extremities: No clubbing, cyanosis, or edema. Neuro: Unable to properly assess. Skin: The patient has sacral ulcers stage II. Laboratory Data: Sodium 149, potassium 4.2, chloride 115, CO2 29, BUN 34, creatinine 0.7, glucose 82 , calcium 8.3, magnesium 2.5, albumin 1.8. WBC 15.8, H and H 12 and 36.5, platelets 151, neutrophils 86%, 1% bands. ABG; pH 7.39, pCO2 47.5, PO2 61, bicarb 28. Blood culture is no growth to date. Sp utum culture, pending. Assessment And Plan: An 87-year-old female with: 1.Sepsis secondary to pneumonia. We will continue with IV antibiotics. Follow up on blood cultures and sputum cultures. Urine culture from 03/06 positive for group B beta-hemolytic strep. Continue antibiotics. 2.Pneumonia aspiration, right lower lobe. We will obtain speech evaluation. 3.Urinary tract infection, secondary to beta-hemolytic strep, acute cystitis, but hematuria. Contin ue antibiotics. 4.Essential hypertension. 5.Schizophrenia. 6.Dementia without behavioral disturbance of average type. 7.Obesity, BMI 38.3. 8.Severe protein-calorie malnutrition, albumin 1.8. 9.Hypernatremia. We will adjust fluids. SA/MODL Voice ID: [id number] Report ID: [id number]
[2018-03-09] MEDS: QUETIAPINE 25 MG TAB PO SCH (21:00)
[2018-03-09] MEDS: JUVEN PACKET PO SCH (21:00)
[2018-03-10] MEDS: PIPER/TAZO/NS 3.375gm 3.375 GM/100 ML BAG IV SCH ×3 (00:50→17:14)
[2018-03-10 04:55] LABS: Absolute Lymphocytes (CBC) 1.3 K/uL (0.7-4.9); Absolute Monocytes 0.8 K/uL (0.1-1.3); Absolute Neutrophil 9.9 K/uL (1.8-8.0); Basophils % 0.3 % (0-1.3); Eosinophils % 0.1 % (0-4.4); Lymphocytes % 10.9 % (15.3-44.8); MCH 30.4 pg (27.0-35.0); MCV 92.1 fL (80-100); MPV 8.9 fL (7.6-11.3); Monocytes % 6.7 % (3.3-12.3); RBC Red Blood Cell Count 3.91 M/uL (3.86-4.86)
[2018-03-10] MEDS: LEVOTHYROXINE SOD 0.075 MG TAB PO SCH (05:07)
[2018-03-10 05:18] LABS: Albumin 1.7 g/dL (3.4-5.0); Bilirubin Total 0.7 mg/dL (0.2-1.0); Magnesium 2.6 mg/dL (1.8-2.4); Phosphorus 2.6 mg/dL (2.5-4.9); Protein, Total 6.1 g/dL (6.4-8.2)
--- NOTE | 2018-03-10 08:38 | P.PN ---
Subjective Date of Service: 03/10/18 Primary Care Provider: [facility] Chief Complaint: Sepsis Subjective: Improving (Patient is doing much better she is more alert responsive cooperative moving all her extremities) Review of Systems is unable to be obtained Physical Examination - Vital Signs Temperature: 97.6 F Blood Pressure: 131/62 Pulse: 87 Respirations: 17 Pulse Ox (%): 91 - Physical Exam General: Alert, Cooperative Respiratory: Clear to auscultation bilaterally Cardiovascular: No edema, Normal S1 S2 - Studies Medications List Reviewed: Yes Assessment & Plan - Problems (Diagnosis) (1) Sepsis Onset Date: 03/09/18 Current Visit: Yes Status: Acute Plan: Possible sepsis patient's white count is declining cultures and negative patient has abnormal x-ray most likely pneumonia ordered a CT scan of the chest Dc vancomycin continue with Zosyn patient has hypoxemia Qualifiers: Sepsis type: sepsis due to unspecified organism Qualified Code(s): A41.9 - Sepsis, unspecified organism (2) Hypernatremia Current Visit: Yes Status: Acute Plan: Increase D5 water 200 cc an hr tsh is normal
[2018-03-10] MEDS: D5W 1,000 ML IV SCH ×2 (09:00→18:35)
[2018-03-10] MEDS: DORZOLAMIDE HCL OPTH SCH ×2 (09:00→21:00)
[2018-03-10] MEDS: HOME MED 1 EA UNK (Brimonidine Tartrate/Timolol [Combigan 0.2%-0.5% Eye Drops] 1 DROP) OPTH SCH ×2 (09:00→21:00)
[2018-03-10] MEDS: ASPIRIN 81 MG CHEWABLE TABLET PO SCH (09:00)
[2018-03-10] MEDS: HOME MED 1 EA UNK (Cyclosporine [Restasis] 1 DROP) OPTH SCH ×2 (09:00→21:00)
[2018-03-10] MEDS: LACTOBACILLUS/ACIDOPHILUS TAB PO SCH (09:00)
[2018-03-10] MEDS: JUVEN PACKET PO SCH ×2 (09:00→21:33)
[2018-03-10] MEDS: DIVALPROEX NA 125 MG CAP PO SCH ×2 (09:00→21:31)
[2018-03-10] MEDS: SERTRALINE HCL 100 MG TAB PO SCH (09:00)
--- NOTE | 2018-03-10 10:13 | RAD REPORT ---
EXAM DESCRIPTION: CT - Thorax Wo Con CLINICAL HISTORY: Chest pain Abnormal right hilum COMPARISON: Chest Single View dated 03/08/2018; Chest Single View dated 03/07/2018 FINDINGS: Prominent area of consolidation is present in right lower lobe and posterior segment right upper lobe with air bronchograms. Mild area of consolidation is seen in the left lower lobe, with ai r bronchograms. Trace pleural effusion is present bilateral. No pneumothorax. No axillary, mediastinal or hilar adenopathy. No concerning bony finding. No gross upper abdominal finding. All CT scans are performed using dose optimization technique as appropriate and may include automated exposure control or mA/KV adjustment according to patient size. IMPRESSION: Airspace opacity is present in both lower lobes, greater on the right with involvement o f the posterior segment right upper lobe as well. The findings are likely related to pneumonia/aspira tion. There is no evidence of a hilar mass.
--- NOTE | 2018-03-10 10:59 | RAD REPORT ---
EXAM DESCRIPTION: RAD - Barium Swallow Modified - 03/10/2018 10:52 am CLINICAL HISTORY: difficulty swallowing possible aspiration COMPARISON: No comparisons TECHNIQUE: The patient was given liquid, semi-solid and solid forms of barium. Lateral view fluorosc opic imaging was performed in conjunction with speech pathology service. FINDINGS: Laryngeal flash penetration: cleared with thin and nectar Esophageal stasis noted. No aspiration observed. Total fluoroscopy time: 2 minutes 27 seconds.
[2018-03-10] MEDS: ENOXAPARIN 40 MG/0.4 ML SQ SCH (11:00)
--- NOTE | 2018-03-10 18:14 | PN ---
Date of Progress Note: 03/10/2018 Subjective: The patient is seen and examined. Chart reviewed and case discussed with RN and Dr. Evelyn rodriguez. The patient much more awake and alert today. No acute events overnight. Review of Systems: Negative except as above. Medications: List reviewed. Physical Examination: Vital Signs: Temperature 98.8, heart rate 89, blood pressure 177/77, respirations 18, O2 92% on 3 L via nasal cannula. General: Awake, alert, oriented x2, elderly female, not in any acute distress. Obese, BMI 38.3. Fr ail, elderly female. CV: S1, S2. Regular rate and rhythm. Peripheral pulses weak bilaterally. Respiratory: Moving air well bilaterally. No wheezing. Gastrointestinal: Abdomen is soft, nontender, nondistended. Positive bowel sounds. Extremities: No clubbing, cyanosis, edema. Neurologic: Nonfocal. Laboratory Data: Sodium 152, potassium 4, chloride 118, CO2 28, BUN 31, creatinine 0.7, glucose 89, calcium 8.2, magnesium 2.6, phosphorus 2.6, and albumin 1.7. WBC 12.1, H and H 11.9 and 36, platelet s 148, neutrophils 82%. Blood cultures, no growth to date. Sputum culture pending. Rapid strep scr een negative. Influenza screen negative. CT chest showed airspace opacity present in both lower lob es, greater on the right with involvement of the posterior segment of right upper lobe as well, likel y aspiration pneumonia. Assessment And Plan: An 87-year-old female with: 1.Sepsis secondary to aspiration pneumonia. Continue with IV antibiotics. Blood cultures and sputu m cultures negative to date. Urine culture from 03/06 positive for group B beta-hemolytic strep. 2.Aspiration pneumonia, right lower lobe. Speech eval completed. Modified barium swallow study was recommended. The patient will be placed on pureed diet. 3.Urinary tract infection. Beta-hemolytic strep, acute cystitis with hematuria. Continue antibioti cs. 4.Essential hypertension, stable. 5.Hypernatremia. Sodium is climbing up. We will adjust IV fluids. 6.History of schizophrenia. 7.Dementia without behavioral disturbance, Alzheimer. 8.Obesity, BMI 38.3. 9.Severe protein-calorie malnutrition. Albumin 1.8. 10.Gastrointestinal and deep venous thrombosis prophylaxis addressed. Plan: Adjust IV fluids. Continue IV antibiotics. Follow up on cultures. SA/MODL Voice ID: [id number] Report ID: [id number]
[2018-03-10] MEDS: QUETIAPINE 25 MG TAB PO SCH (21:31)
[2018-03-11] MEDS: PIPER/TAZO/NS 3.375gm 3.375 GM/100 ML BAG IV SCH ×3 (00:41→16:24)
[2018-03-11 04:16] LABS: Absolute Lymphocytes (CBC) 1.6 K/uL (0.7-4.9); Absolute Monocytes 0.7 K/uL (0.1-1.3); Absolute Neutrophil 7.6 K/uL (1.8-8.0); Basophils % 0.1 % (0-1.3); Eosinophils % 1.3 % (0-4.4); Hematocrit 36.1 % (36.0-45.0); Lymphocytes % 16.4 % (15.3-44.8); MCH 30.2 pg (27.0-35.0); MCV 91.9 fL (80-100); Monocytes % 6.6 % (3.3-12.3); RBC Red Blood Cell Count 3.93 M/uL (3.86-4.86)
[2018-03-11 04:33] LABS: ALT/SGPT 21 U/L (12-78); AST/SGOT 61 U/L (15-37); Albumin 1.7 g/dL (3.4-5.0); Alkaline Phosphatase 84 U/L (45-117); BUN Blood Urea Nitrogen 34 mg/dL (7-18); Bicarbonate 31 mmol/L (21-32); Bilirubin Total 0.6 mg/dL (0.2-1.0); Glucose Level 102 mg/dL (74-106); Potassium 3.4 mmol/L (3.5-5.1); Protein, Total 5.9 g/dL (6.4-8.2); Sodium Level 147 mmol/L (136-145)
[2018-03-11] MEDS: D5W 1,000 ML IV SCH ×3 (05:00→20:51)
[2018-03-11] MEDS: LEVOTHYROXINE SOD 0.075 MG TAB PO SCH (05:46)
[2018-03-11] MEDS: KCL 20 MEQ/100 mL IVPB 20 MEQ/100 ML BAG IV SCH ×2 (08:39→11:40)
[2018-03-11] MEDS: ASPIRIN 81 MG CHEWABLE TABLET PO SCH (08:40)
[2018-03-11] MEDS: SERTRALINE HCL 100 MG TAB PO SCH (08:40)
[2018-03-11] MEDS: DIVALPROEX NA 125 MG CAP PO SCH ×2 (08:40→20:37)
[2018-03-11] MEDS: LACTOBACILLUS/ACIDOPHILUS TAB PO SCH (08:40)
[2018-03-11] MEDS: HOME MED 1 EA UNK (Brimonidine Tartrate/Timolol [Combigan 0.2%-0.5% Eye Drops] 1 DROP) OPTH SCH ×2 (08:41→20:37)
[2018-03-11] MEDS: ENOXAPARIN 40 MG/0.4 ML SQ SCH (08:41)
[2018-03-11] MEDS: JUVEN PACKET PO SCH ×2 (08:42→20:38)
[2018-03-11] MEDS: DORZOLAMIDE HCL OPTH SCH ×2 (08:42→20:38)
[2018-03-11] MEDS: HOME MED 1 EA UNK (Cyclosporine [Restasis] 1 DROP) OPTH SCH ×2 (08:42→20:37)
--- NOTE | 2018-03-11 18:00 | PN ---
Date of Progress Note: 03/11/2018 Subjective: The patient seen and examined. Chart reviewed and case discussed with RN and Dr. Inés farmer. The patient is much more alert and oriented without any acute distress. No acute events overnig ht. Review of Systems: Negative except as above. Medications: Reviewed. Physical Examination: Vital Signs: Temperature 98, heart rate 83, blood pressure 144/82, respirations 23, O2 92% on room a ir. General: Awake, alert, oriented x2 elderly female, obese, BMI 38. CV: S1, S2. Peripheral pulses weak bilaterally. No murmurs. Respiratory: Moving air well bilaterally. No wheezing Gastrointestinal: Abdomen is soft, nontender, nondistended. Positive bowel sounds. Extremities: No clubbing, cyanosis. She does have some pedal edema. Neurologic: Nonfocal. Laboratory Data: Sodium 137, potassium 3.4, chloride 112, CO2 31, BUN 34, creatinine 0.6, glucose 10 2, calcium 8.1, total bilirubin 0.6, albumin 1.7. WBC 10, H and H 11.9 and 36.1, platelets 141, neut rophils 75%. Blood cultures negative to date. Urine culture is normal, respiratory ade. Modified barium swallow study shows no laryngeal penetration. With thin and nectar essential stasis noted no aspiration observed. Assessment And Plan: An 87-year-old female with: 1.Sepsis secondary to aspiration pneumonia. Continue IV antibiotics. Blood cultures and sputum cul tures negative. The patient's urine culture from 03/06 was positive for group B hemolytic strep. 2.Acute metabolic encephalopathy, improving. The patient does have hypernatremia. We will continue with fluids. 3.Aspiration pneumonia, right lower lobe. Modified barium swallow study is completed. The patient will be placed on pureed diet. 4.Dysphagia. Diet adjusted to pureed diet. 5.Urinary tract infection due to hemolytic strep, acute cystitis with hematuria. Continue antibioti cs. 6.Essential hypertension, stable. 7.Hypernatremia, improving. We will continue with IV fluids. 8.History of schizophrenia. 9.Dementia without behavioral disturbance, Alzheimer's type. 10.Obesity, BMI 38.3. 11.Severe protein-calorie malnutrition. Albumin 1.7. 12.Gastrointestinal and deep venous thrombosis prophylaxis addressed. SA/MODL Voice ID: [id number] Report ID: [id number]
[2018-03-11] MEDS: QUETIAPINE 25 MG TAB PO SCH (20:37)
[2018-03-12] MEDS: PIPER/TAZO/NS 3.375gm 3.375 GM/100 ML BAG IV SCH ×2 (00:58→10:22)
[2018-03-12] MEDS ORDERED: KCL 20 MEQ/100 mL IVPB 20 MEQ/100 ML BAG IV SCH (01:00)
[2018-03-12 04:16] LABS: Absolute Lymphocytes (CBC) 1.4 K/uL (0.7-4.9); Absolute Monocytes 0.5 K/uL (0.1-1.3); Absolute Neutrophil 8.4 K/uL (1.8-8.0); Basophils % 0.7 % (0-1.3); Eosinophils % 2.5 % (0-4.4); Hematocrit 37.5 % (36.0-45.0); Lymphocytes % 13.3 % (15.3-44.8); MCH 30.4 pg (27.0-35.0); MCV 90.4 fL (80-100); MPV 9.3 fL (7.6-11.3); Monocytes % 4.4 % (3.3-12.3); RBC Red Blood Cell Count 4.15 M/uL (3.86-4.86)
[2018-03-12 04:23] LABS: ALT/SGPT 22 U/L (12-78); AST/SGOT 53 U/L (15-37); Albumin 1.6 g/dL (3.4-5.0); Alkaline Phosphatase 96 U/L (45-117); BUN Blood Urea Nitrogen 20 mg/dL (7-18); Bicarbonate 28 mmol/L (21-32); Bilirubin Total 0.4 mg/dL (0.2-1.0); Glucose Level 108 mg/dL (74-106); Potassium 4.1 mmol/L (3.5-5.1); Protein, Total 5.5 g/dL (6.4-8.2); Sodium Level 145 mmol/L (136-145)
[2018-03-12] MEDS: LEVOTHYROXINE SOD 0.075 MG TAB PO SCH (05:03)
[2018-03-12] MEDS: HOME MED 1 EA UNK (Cyclosporine [Restasis] 1 DROP) OPTH SCH (09:00)
[2018-03-12] MEDS: HOME MED 1 EA UNK (Brimonidine Tartrate/Timolol [Combigan 0.2%-0.5% Eye Drops] 1 DROP) OPTH SCH (09:00)
[2018-03-12] MEDS: DORZOLAMIDE HCL OPTH SCH (09:00)
[2018-03-12] MEDS: JUVEN PACKET PO SCH (09:00)
[2018-03-12] MEDS: LACTOBACILLUS/ACIDOPHILUS TAB PO SCH (09:53)
[2018-03-12] MEDS: DIVALPROEX NA 125 MG CAP PO SCH (09:53)
[2018-03-12] MEDS: ASPIRIN 81 MG CHEWABLE TABLET PO SCH (09:53)
[2018-03-12] MEDS: ENOXAPARIN 40 MG/0.4 ML SQ SCH (09:54)
[2018-03-12] MEDS: SERTRALINE HCL 100 MG TAB PO SCH (09:54)
[2018-03-12] MEDS: D5W 1,000 ML IV SCH (10:24)
--- NOTE | 2018-03-12 12:46 | EKG ---
Test Date: 2018-03-12 Test Time: 11:04:27 [employer]: [place] MEASUREMENT RESULTS: Intervals: Rate: 84 SC: 110 QRSD: 84 QT: 372 QTc: 439 [place]: P: 112 SC: 110 QRS: -12 T: 33 INTERPRETIVE STATEMENTS: Sinus rhythm with short SC with frequent premature ventricular complexes ST & T wave abnormality, consider inferior ischemia Abnormal ECG Compared to ECG 03/07/2018 14:55:56 ST (T wave) deviation now present Possible ischemia now present Myocardial infarct finding no longer present Electronically Signed On 03-12-18 12:45:39 CDT by Vinnie Esquivel
--- NOTE | 2018-03-12 16:13 | DS ---
Date of Discharge: 03/12/2018 Consultants: Dr. Max with Pulmonology. Admitting Diagnoses: 1.Sepsis. 2.Aspiration pneumonia. 3.Urinary tract infection, acute cystitis without hematuria. 4.Essential hypertension. 5.Schizophrenia. 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 Discharge Diagnoses: 1.Sepsis, resolved, secondary to pneumonia. 2.Acute metabolic encephalopathy, resolved. 3.Aspiration pneumonia, right lower lobe, improving. 4.Dysphagia, diet adjusted to puree. 5.Hypernatremia, resolved. 6.Urinary tract infection, acute cystitis with hematuria, secondary to Streptococcus agalactiae. 7.Essential hypertension, stable. 8.History of schizophrenia. 9.Alzheimer's dementia without behavioral disturbance. 10.Obesity, BMI 38.3. 11.Severe protein-calorie malnutrition. Albumin 1.7. Hospital Course: The patient is an 87[facility]year[place], who is admitted for sep sis. The patient was agitated, had generalized weakness and ill-appearing. Also was somewhat hypoxi c at 88%. The patient was found to have UTI, which grew out Streptococcus agalactiae. The patient d oes have very poor vision and hearing. The patient was found to have pneumonia. Cultures were obtai daija and blood cultures remained negative. Final sputum culture did not show any growth. Flu screen and group A rapid strep screen were negative. The patient's sepsis improved. Her white count normal ized. She is no longer septic. The patient did develop some hypernatremia, which improved with D5W. The patient was also seen by Pulmonology for her respiratory issues. CT scan of the chest showed a irspace opacities, both lower lobes, greater on the right with involvement of the posterior segment o f the right upper lobe. Due to suspicion of aspiration pneumonia, the patient was evaluated by Speec h Therapy and modified barium swallow study was recommended. She did have some aspiration and her di et was changed to pureed diet, which she was able to tolerate without difficulty. The patient's ment al status improved. She was more awake and alert, back to her baseline. Her sepsis had resolved. S he was then cleared for discharge from Pulmonology standpoint. Her oxygenation also improved, koltoneve r, was still on 3 L via nasal cannula, saturating 96%. The patient was then discharged back to the [facility] in a stable condition. Activity: Fall precautions. Diet: Pureed diet. Followup: Follow up with PCP in 2-3 days. Follow up with Dr. Max, rider ticket worker in 2-3 weeks. Return to ER for worsening condition. Medications: As per medication reconciliation list. Total time spent discharging the patient was 37 minutes. Physical Examination: General: Awake, alert, oriented x2, not in any acute distress. Elderly female, obese. CV: S1, S2. No murmurs. Peripheral pulses present. Respiratory: Moving air well bilaterally. Gastrointestinal: Abdomen is soft, nontender, nondistended. Positive bowel sounds. Extremities: No clubbing, cyanosis, edema. SA/MODL Voice ID: [id number] Report ID: [id number]
== END 2018-03-12 18:30 | DRG 871 ==
LOC: ER 12:58 → ERHOLD 16:22 → 4TH 17:12
PROVIDERS: ADMIT Family Medicine; ATTEND Family Medicine
DX: A41.9 Sepsis, unspecified organism (principal); E43 Unspecified severe protein-calorie malnutrition; J69.0 Pneumonitis due to inhalation of food and vomit; N30.00 Acute cystitis without hematuria; F20.89 Other schizophrenia; E87.0 Hyperosmolality and hypernatremia; I10 Essential (primary) hypertension; B95.1 Streptococcus, group B, as the cause of diseases classified elsewhere; R09.02 Hypoxemia; H54.8 Legal blindness, as defined in USA; H40.9 Unspecified glaucoma; L89.152 Pressure ulcer of sacral region, stage 2; E66.9 Obesity, unspecified; G30.9 Alzheimer's disease, unspecified; F02.80 Dementia in other diseases classified elsewhere, unspecified severity, without behavioral disturbance, psychotic disturbance, mood disturbance, and anxiety; E03.9 Hypothyroidism, unspecified; F41.8 Other specified anxiety disorders; Z68.38 Body mass index [BMI] 38.0-38.9, adult; Z88.0 Allergy status to penicillin; Z79.82 Long term (current) use of aspirin; R13.10 Dysphagia, unspecified
CPT/HCPCS: 36415; 71045; 71250; 74230; 80048; 80053; 80076; 80202; 81003; 81015; 82150; 82550; 82553; 82805; 82962; 83605; 83690; 83735; 84100; 84132; 84145; 84443; 84484; 85025; 85610; 85730; 87040; 87070; 87077; 87081; 87086; 87088; 87186; 87205; 87804; 93005; 94640; 94760; 96361; 96365; 96368; 97163; 99285; J1650; J2543; J7030

== ENCOUNTER 2018-12-02 13:20 | Observation (INO) | payer OTHER ==
--- NOTE | 2018-12-02 14:24 | RAD REPORT ---
EXAM DESCRIPTION: Ita Single View12/02/2018 2:18 pm CLINICAL HISTORY: Fever COMPARISON: February 2018 FINDINGS: The lungs appear clear of acute infiltrate. The heart is normal size IMPRESSION: No acute abnormalities displayed
[2018-12-02 15:52] LABS: Urine Bacteria LOADED /HPF (<20); Urine Culture Reflex Order REFLEXED
[2018-12-02 16:07] LABS: Protime INR 1.02
[2018-12-02 16:12] LABS: Absolute Lymphocytes (CBC) 2.4 K/uL (0.7-4.9); Absolute Neutrophil 7.7 K/uL (1.8-8.0); Basophils % 0.2 % (0-1.3); Eosinophils % 0.3 % (0-4.4); Hematocrit 38.1 % (36.0-45.0); Lymphocytes % 21.9 % (15.3-44.8); MPV 9.6 fL (7.6-11.3); Monocytes % 8.7 % (3.3-12.3); RBC Red Blood Cell Count 3.92 M/uL (3.86-4.86)
[2018-12-02 16:46] LABS: ALT/SGPT 8 U/L (12-78); AST/SGOT 22 U/L (15-37); Albumin 2.1 g/dL (3.4-5.0); Alkaline Phosphatase 77 U/L (45-117); BUN Blood Urea Nitrogen 21 mg/dL (7-18); Bicarbonate 27 mmol/L (21-32); Bilirubin Direct 0.1 mg/dL (0-0.2); Bilirubin Total 0.4 mg/dL (0.2-1.0); CKMB Creatine Kinase MB < 1.0 ng/mL (0.3-3.6); Creatine Phosphokinase 35 U/L (26-192); Glucose Level 86 mg/dL (74-106); Lipase 46 U/L (73-393); Potassium 4.5 mmol/L (3.5-5.1); Protein, Total 6.4 g/dL (6.4-8.2); Sodium Level 141 mmol/L (136-145); Troponin (Emerg Dept Use Only) < 0.02 ng/mL (0.0-0.045)
[2018-12-02] MEDS ORDERED: CIPROFLOXACIN 400mg IV 400 MG/200 ML BAG IV ONE (17:11)
[2018-12-02 17:27] LABS: Blood Morphology Comment NOT SEEN (NOT SEEN); Platelet Estimate DECR; Urine White Blood Cell Casts OK
[2018-12-02] MEDS ORDERED: NA CHLORIDE 0.9% 500 ML ONE (18:16)
[2018-12-02] MEDS ORDERED: ACETAMINOPHEN 500 MG TAB ONE (18:16)
--- NOTE | 2018-12-02 18:27 | ER ---
Nurse's Notes [facility] Name: Roselia Boyle Age: 88 yrs Sex: Female : 1930 Arrival Date: 12/02/2018 Time: 13:23 Bed 14 Private MD: Diagnosis: Dehydration;Urosepsis Presentation: 12/02 13:31 Presenting complaint: EMS states: [facility] sent patient for fever, chills, aj1 and dysuria. Patient has a history of dementia and psychosis and is A\T\Ox1. Transition of care: patient was not received from another setting of care. Onset of symptoms was December 02, 2018 at 13:32. Risk Assessment: Do you want to hurt yourself or someone else? Patient reports no desire to harm self or others. Initial Sepsis Screen: Does the patient meet any 2 criteria? RR > 20 per min. HR > 90 bpm. Yes Does the patient have a suspected source of infection? Yes: Dysuria/Frequency/Urgency/UTI. Care prior to arrival: None. 13:31 Method Of Arrival: EMS: [facility] aj1 13:31 Acuity: HANS 3 aj1 Triage Assessment: 13:45 General: Appears in no apparent distress. uncomfortable, Behavior is calm, cooperative, aj1 appropriate for age. Pain: Denies pain. Historical: - Allergies: 13:45 PENICILLINS; aj1 - Home Meds: 13:45 abh gel apply to inner wrist once a day on Friday, , and Friday [Active]; aj1 abh gel every 8 hours as needed for agitation [Active]; Aricept 10 mg Oral tab 2 tab at bedtime [Active]; aspirin 81 mg Oral TbEC 1 tab once daily [Active]; cyclosporine ophthalmic ophthalmic 1 drop every 12 hours [Active]; Depakote Sprinkles 125 mg Oral cpSP 4 caps daily [Active]; Depakote Sprinkles 125 mg Oral cpSP 5 caps daily [Active]; docusate sodium 100 mg Oral tab 1 tab once daily [Active]; ipratropium-albuterol 0.5 mg-3 mg(2.5 mg base)/3 mL Inhl nebu 3 mL every 6 hours as needed for cough [Active]; lactobacillus acidophilus (bulk) miscellaneous twice a day [Active]; levothyroxine 150 mcg oral tab 1 tab once daily [Active]; lisinopril 10 mg oral tab 1 tab once daily [Active]; loratadine 10 mg Oral tab 1 tab once daily [Active]; melatonin 3 mg Oral tab nightly [Active]; montelukast 10 mg oral tab 1 tab once daily [Active]; multivitamin oral cap daily [Active]; Miralax 17 gram Oral pwpk 1 packet once daily [Active]; sennosides 8.6 mg Oral tab 2 tabs once daily [Active]; sertraline 100 mg Oral tab 1 tab once daily [Active]; tramadol 50 mg Oral tab 1 tab every 8 hours as needed for pain [Active]; - PMHx: 13:45 Dementia; dysphagia; Pneumonia; acute cystitis; Depression; Hypertension; ibs; aj1 Hypothyroidism; psychosis; Anxiety; Glaucoma; blindness; Chronic pain; - Immunization history:: Adult Immunizations up to date. - Social history:: Smoking status: Patient/guardian denies using tobacco. - Ebola Screening: : Patient denies travel to an Ebola-affected area in the 21 days before illness onset. Screenin:47 Abuse screen: Denies threats or abuse. Denies injuries from another. Nutritional aj1 screening: No deficits noted. Tuberculosis screening: No symptoms or risk factors identified. Assessment: 13:47 General: Appears in no apparent distress. comfortable, Behavior is calm, cooperative. aj1 Pain: Denies pain. Neuro: Level of Consciousness is awake, alert, Oriented to person. Cardiovascular: Patient's skin is warm and dry. Respiratory: Airway is patent Respiratory effort is even, unlabored, Respiratory pattern is regular, symmetrical. GI: No signs and/or symptoms were reported involving the gastrointestinal system. : Parent/caregiver report the patient having burning with urination. EENT: No signs and/or symptoms were reported regarding the EENT system. Derm: No signs and/or symptoms reported regarding the dermatologic system. Skin is pink, warm \T\ dry. normal. Musculoskeletal: WNL for patient. 14:45 Reassessment: Patient appears in no apparent distress at this time. No changes from aj1 previously documented assessment. Patient and/or family updated on plan of care and expected duration. Pain level reassessed. Patient is alert, oriented x 3, equal unlabored respirations, skin warm/dry/pink. 15:15 Reassessment: Patient and/or family updated on plan of care and expected duration. Pain aj1 level reassessed. General: Appears in no apparent distress. comfortable, Behavior is calm, cooperative. Pain: Denies pain. Neuro: Level of Consciousness is awake, alert, Oriented to person. Cardiovascular: Patient's skin is warm and dry. Rhythm is sinus rhythm. Respiratory: Airway is patent Respiratory effort is even, unlabored, Respiratory pattern is regular, symmetrical. 16:30 Reassessment: Patient appears in no apparent distress at this time. No changes from aj1 previously documented assessment. Patient and/or family updated on plan of care and expected duration. Pain level reassessed. 17:28 Reassessment: Patient and/or family updated on plan of care and expected duration. Pain aj1 level reassessed. General: Appears in no apparent distress. comfortable, Behavior is calm, cooperative. Neuro: Level of Consciousness is awake, alert, Oriented to person. Cardiovascular: Patient's skin is warm and dry. Respiratory: Airway is patent Respiratory effort is even, unlabored, Respiratory pattern is regular, symmetrical. Derm: Skin is pink, warm \T\ dry. normal. 18:49 Reassessment: Patient and/or family updated on plan of care and expected duration. Pain aj1 level reassessed. General: Appears in no apparent distress. comfortable, Behavior is calm, cooperative. Pain: Denies pain. Neuro: Level of Consciousness is awake, alert, Oriented to person. Cardiovascular: Patient's skin is warm and dry. Rhythm is sinus rhythm. Respiratory: Airway is patent Respiratory effort is even, unlabored, Respiratory pattern is regular, symmetrical. GI: No signs and/or symptoms were reported involving the gastrointestinal system. Derm: Skin is pink, warm \T\ dry. normal. 19:05 Reassessment: Patient appears in no apparent distress at this time. Patient and/or jb4 family updated on plan of care and expected duration. Pain level reassessed. Neuro: Level of Consciousness is awake, alert, Oriented to person. Respiratory: Airway is patent Respiratory effort is even, unlabored, Respiratory pattern is regular, symmetrical. 19:48 Reassessment: Attempted to call report, instructed to wait for call back. jb4 19:58 Respiratory: Breath sounds are clear bilaterally. jb4 20:15 Reassessment: PT is being wheeled to room 410 via stretcher. Taken up by residential gas heat technician. Son mitzy is at the bedside. Pt has a 22g IV to the RAC and a 22 g to the L wrist. 30ml/kg bolus continued upon transfer. no change from prior assessment noted. Vital Signs: 13:45 BP 151 / 72; Pulse 93; Resp 22; Temp 99.1(O); Pulse Ox 97% on R/A; Pain 0/10; aj1 14:30 BP 148 / 77; Pulse 97; Resp 18; Pulse Ox 96% on R/A; aj1 15:30 BP 144 / 70; Pulse 96; Resp 18; Pulse Ox 95% on R/A; aj1 16:30 BP 132 / 75; Pulse 94; Resp 18; Pulse Ox 97% on R/A; aj1 16:49 Temp 100.2(O); tw2 17:24 BP 112 / 80; Pulse 96; Resp 18; Pulse Ox 97% on R/A; aj1 18:19 Temp 101.8(O); aj1 18:19 Weight 80.74 kg (R); aj1 18:22 BP 141 / 91; Pulse 99; Resp 20; Pulse Ox 98% on R/A; aj1 18:50 BP 138 / 74; Pulse 97; Resp 22; Pulse Ox 95% on R/A; aj1 19:30 BP 108 / 64; Pulse 80; Resp 16; Pulse Ox 95% on R/A; jb4 19:58 Temp 99.0(O); jb4 16:49 per Vicky Recio tw2 ED Course: 13:23 Patient arrived in ED. ss 13:30 Vinita Mello, NAWAF is Primary Nurse. aj1 13:33 Triage completed. aj1 13:40 Ry Randle NP is PHCP. pm1 13:40 Carlos Cornejo MD is Attending Physician. pm1 13:45 Arm band placed on. aj1 13:47 Patient has correct armband on for positive identification. aj1 13:47 No provider procedures requiring assistance completed. aj1 14:18 Chest Single View XRAY In Process Unspecified. EDMS 14:39 First set of blood cultures drawn by me. Inserted saline lock: 22 gauge in left dh3 forearm, using aseptic technique. Blood collected. 14:55 Second set of blood cultures drawn by me. Inserted saline lock: 22 gauge in right dh3 antecubital area, using aseptic technique. Blood collected. 14:59 Straight cath inserted, using sterile technique, 18 Fr. Specimen obtained. Returned tw2 cloudy urine. Patient tolerated well. NAWAF Bedoya and Vicky Recio served as supervisor porcelain department and help during the straight cath. 18:24 Savage Perales MD is Hospitalizing Provider. pm1 20:15 Patient admitted, IV remains in place. jb4 Administered Medications: 17:17 Drug: Cipro 400 mg Volume: 200 ml; Route: IVPB; Infused Over: 60 mins; Site: right aj1 antecubital; 18:30 Follow up: IV Status: Completed infusion; IV Intake: 200ml aj1 18:22 CANCELLED (Other Intervention Used): NS 0.9% 500 ml IV at bolus once aj1 18:22 Drug: Tylenol 1000 mg Route: PO; aj1 18:54 Follow up: Response: No adverse reaction 1 18:29 Drug: NS 0.9% (30 ml/kg) 30 ml/kg Route: IV; Rate: bolus; Site: left antecubital; aj1 20:19 Follow up: Response: No adverse reaction; IV Status: Infusion continued upon admission; jb4 IV Intake: 1000ml Intake: 18:30 IV: 200ml; Total: 200ml. aj1 20:19 IV: 1000ml; Total: 1200ml. jb4 Outcome: 18:26 Decision to Hospitalize by Provider. pm1 20:15 Admitted to Tele accompanied by vicky, via stretcher, room 410, with chart, Report jb4 called to NAW[facility] 20:15 Condition: stable 20:15 Discharge instructions given to family, Instructed on the need for admit, Demonstrated understanding of instructions. 20:20 Patient left the ED. jb4 Signatures: Dispatcher [employer] EDMS Vinita Mello RN RN aj1 Adriana Mccurdy RN RN ss Marinas, Patrick, [employer] pm1 Niki Thomas RN RN tw2 Franklin Archibald RN RN jb4 Almita Rodriguez [facility]
--- NOTE | 2018-12-02 18:27 | EDPHYS ---
Physician Documentation [facility] Name: Roselia Boyle Age: 88 yrs Sex: Female : 1930 Arrival Date: 12/02/2018 Time: 13:23 Bed 14 Private MD: ED Physician Carlos Cornejo HPI: 12/02 14:03 This 88 yrs old Female presents to ER via EMS with complaints of fever. pm1 14:03 The patient reports fever, that was measured at 99 degrees Fahrenheit. Onset: The pm1 symptoms/episode began/occurred this morning. Modifying factors: there are no obvious modifying factors. Associated signs and symptoms: Pertinent negatives: cough, skin rash, shortness of breath. Unable to obtain HPI due to baseline dementia, patient alert only to person which is her baseline. The patient has not recently seen a physician. Patient sent by [facility] with complaint of fever of 99 this AM. Patient with baseline dementia alert only there person. Patient denies any pain and has no complaints.. Historical: - Allergies: 13:45 PENICILLINS; aj1 - Home Meds: 13:45 abh gel apply to inner wrist once a day on Friday, , and Friday [Active]; aj1 abh gel every 8 hours as needed for agitation [Active]; Aricept 10 mg Oral tab 2 tab at bedtime [Active]; aspirin 81 mg Oral TbEC 1 tab once daily [Active]; cyclosporine ophthalmic ophthalmic 1 drop every 12 hours [Active]; Depakote Sprinkles 125 mg Oral cpSP 4 caps daily [Active]; Depakote Sprinkles 125 mg Oral cpSP 5 caps daily [Active]; docusate sodium 100 mg Oral tab 1 tab once daily [Active]; ipratropium-albuterol 0.5 mg-3 mg(2.5 mg base)/3 mL Inhl nebu 3 mL every 6 hours as needed for cough [Active]; lactobacillus acidophilus (bulk) miscellaneous twice a day [Active]; levothyroxine 150 mcg oral tab 1 tab once daily [Active]; lisinopril 10 mg oral tab 1 tab once daily [Active]; loratadine 10 mg Oral tab 1 tab once daily [Active]; melatonin 3 mg Oral tab nightly [Active]; montelukast 10 mg oral tab 1 tab once daily [Active]; multivitamin oral cap daily [Active]; Miralax 17 gram Oral pwpk 1 packet once daily [Active]; sennosides 8.6 mg Oral tab 2 tabs once daily [Active]; sertraline 100 mg Oral tab 1 tab once daily [Active]; tramadol 50 mg Oral tab 1 tab every 8 hours as needed for pain [Active]; - PMHx: 13:45 Dementia; dysphagia; Pneumonia; acute cystitis; Depression; Hypertension; ibs; aj1 Hypothyroidism; psychosis; Anxiety; Glaucoma; blindness; Chronic pain; - Immunization history:: Adult Immunizations up to date. - Social history:: Smoking status: Patient/guardian denies using tobacco. - Ebola Screening: : Patient denies travel to an Ebola-affected area in the 21 days before illness onset. ROS: 14:03 ENT: Negative for injury, pain, and discharge, Neck: Negative for injury, pain, and pm1 swelling. 14:03 Eyes: Negative for injury, pain, redness, and discharge, Cardiovascular: Negative for chest pain, palpitations, and edema, Respiratory: Negative for shortness of breath, cough, wheezing, and pleuritic chest pain, Abdomen/GI: Negative for abdominal pain, nausea, vomiting, diarrhea, and constipation, Back: Negative for injury and pain, : Negative for injury, bleeding, discharge, and swelling, MS/Extremity: Negative for injury and deformity, Skin: Negative for injury, rash, and discoloration, Neuro: Negative for headache, weakness, numbness, tingling, and seizure. 14:03 Constitutional: Positive for fever. 14:03 Unable to obtain ROS due to baseline dementia, based of EMS report. Exam: 14:03 Constitutional: This is a well developed, well nourished patient who is awake, alert pm1 to self only, and in no acute distress. 14:03 Head/Face: Normocephalic, atraumatic. Eyes: Pupils equal round and reactive to light, extra-ocular motions intact. Lids and lashes normal. Conjunctiva and sclera are non-icteric and not injected. Cornea within normal limits. Periorbital areas with no swelling, redness, or edema. ENT: Nares patent. No nasal discharge, no septal abnormalities noted. Tympanic membranes are normal and external auditory canals are clear. Oropharynx with no redness, swelling, or masses, exudates, or evidence of obstruction, uvula midline. Mucous membranes moist. Neck: Trachea midline, no thyromegaly or masses palpated, and no cervical lymphadenopathy. Supple, full range of motion without nuchal rigidity, or vertebral point tenderness. No Meningismus. Chest/axilla: Normal chest wall appearance and motion. Nontender with no deformity. No lesions are appreciated. Cardiovascular: Regular rate and rhythm with a normal S1 and S2. No gallops, murmurs, or rubs. Normal PMI, no JVD. No pulse deficits. Respiratory: Lungs have equal breath sounds bilaterally, clear to auscultation and percussion. No rales, rhonchi or wheezes noted. No increased work of breathing, no retractions or nasal flaring. 14:03 Back: No spinal tenderness. No costovertebral tenderness. Full range of motion. Skin: Warm, dry with normal turgor. Normal color with no rashes, no lesions, and no evidence of cellulitis. MS/ Extremity: Pulses equal, no cyanosis. Neurovascular intact. Full, normal range of motion. 14:03 Abdomen/GI: Inspection: obese Bowel sounds: normal, Palpation: abdomen is soft and non-tender, mass, is not appreciated, rebound tenderness, is not appreciated. 14:03 Neuro: Orientation: is normal, Motor: moves all fours, Sensation: no obvious gross deficits. Vital Signs: 13:45 BP 151 / 72; Pulse 93; Resp 22; Temp 99.1(O); Pulse Ox 97% on R/A; Pain 0/10; aj1 14:30 BP 148 / 77; Pulse 97; Resp 18; Pulse Ox 96% on R/A; aj1 15:30 BP 144 / 70; Pulse 96; Resp 18; Pulse Ox 95% on R/A; aj1 16:30 BP 132 / 75; Pulse 94; Resp 18; Pulse Ox 97% on R/A; aj1 16:49 Temp 100.2(O); tw2 17:24 BP 112 / 80; Pulse 96; Resp 18; Pulse Ox 97% on R/A; aj1 18:19 Temp 101.8(O); aj1 18:19 Weight 80.74 kg (R); aj1 18:22 BP 141 / 91; Pulse 99; Resp 20; Pulse Ox 98% on R/A; aj1 18:50 BP 138 / 74; Pulse 97; Resp 22; Pulse Ox 95% on R/A; aj1 19:30 BP 108 / 64; Pulse 80; Resp 16; Pulse Ox 95% on R/A; jb4 19:58 Temp 99.0(O); jb4 16:49 per Vicky Recio tw2 MDM: 13:43 Patient medically screened. pm1 17:55 Data reviewed: vital signs. Data interpreted: Pulse oximetry: on room air is 97 %. pm1 Interpretation: normal. 18:19 Counseling: I had a detailed discussion with the patient and/or guardian regarding: the pm1 historical points, exam findings, and any diagnostic results supporting the discharge/admit diagnosis, lab results, radiology results, the need for further work-up and treatment in the hospital, Patient with baseline dementia. Uncertain alerted mental status change. Has fever. Elevated BUN, dehydration and urinary tract source for fever. Will admit patient because she will benefit from IV fluids and IV antibiotics. 18:19 Physician consultation: Savage Perales MD regarding admission, patient's condition, and pm1 will see patient. 18:19 ED course: Sepsis criteria: temperature greater than 100.5, heart rate greater than 90, pm1 and urinary tract infection present. 12/02 13:48 Order name: Urine Culture 12/02 13:48 Order name: Basic Metabolic Panel pm12/02 13:48 Order name: Blood Culture Adult (2) 12/02 13:48 Order name: CBC with Diff 12/02 13:48 Order name: Ckmb 12/02 13:48 Order name: CPK pm12/02 13:48 Order name: Lactate 12/02 13:48 Order name: LFT's 12/02 13:48 Order name: Lipase 12/02 13:48 Order name: Procalcitonin 12/02 13:48 Order name: Protime (+inr); Complete Time: 16:17 pm12/02 13:48 Order name: Ptt, Activated; Complete Time: 16:17 pm12/02 13:48 Order name: Troponin (emerg Dept Use Only); Complete Time: 16:53 pm12/02 13:48 Order name: Urine Microscopic Only; Complete Time: 15:59 pm12/02 13:48 Order name: Chest Single View XRAY; Complete Time: 14:37 pm12/02 13:48 Order name: Urine Culture [facility] 12/02 13:49 Order name: Basic Metabolic Panel; Complete Time: 16:53 EDLA 12/02 13:49 Order name: Blood Culture [facility] 12/02 13:49 Order name: CBC with Automated Diff; Complete Time: 17:37 EDLA 12/02 13:49 Order name: CKMB Creatine Kinase MB; Complete Time: 16:53 EDLA 12/02 13:49 Order name: Creatine Phosphokinase; Complete Time: 16:53 [facility] 12/02 13:49 Order name: Lactate; Complete Time: 16:34 EDLA 12/02 13:49 Order name: Liver (Hepatic) Function; Complete Time: 16:53 EDLA 12/02 13:49 Order name: Lipase; Complete Time: 16:53 [facility] 12/02 13:49 Order name: Procalcitonin; Complete Time: 17:06 [facility] 12/02 15:21 Order name: Urine Dipstick--Ancillary (enter results) 12/02 17:28 Order name: CBC Smear Scan; Complete Time: 17:37 EDLA 12/02 13:48 Order name: Cath; Complete Time: 15:09 pm12/02 13:48 Order name: Accucheck; Complete Time: 17:18 pm12/02 13:48 Order name: Cardiac monitoring; Complete Time: 15:10 pm12/02 13:48 Order name: EKG - Nurse/Tech; Complete Time: 15:10 pm12/02 13:48 Order name: IV Saline Lock - Large Bore; Complete Time: 15:10 pm12/02 13:48 Order name: Labs collected and sent; Complete Time: 17:17 pm12/02 13:48 Order name: O2 Per Protocol; Complete Time: 15:10 pm12/02 13:48 Order name: O2 Sat Monitoring; Complete Time: 15:10 pm12/02 13:48 Order name: Urine Dipstick-Ancillary (obtain specimen); Complete Time: 15:10 pm1 Administered Medications: 17:17 Drug: Cipro 400 mg Volume: 200 ml; Route: IVPB; Infused Over: 60 mins; Site: right aj1 antecubital; 18:30 Follow up: IV Status: Completed infusion; IV Intake: 200ml 18:22 CANCELLED (Other Intervention Used): NS 0.9% 500 ml IV at bolus once 18:22 Drug: Tylenol 1000 mg Route: PO; aj1 18:54 Follow up: Response: No adverse reaction 18:29 Drug: NS 0.9% (30 ml/kg) 30 ml/kg Route: IV; Rate: bolus; Site: left antecubital; aj1 20:19 Follow up: Response: No adverse reaction; IV Status: Infusion continued upon admission; jb4 IV Intake: 1000ml Disposition: 12/02/18 18:26 Hospitalization ordered by Savage Perales for Inpatient Admission. Preliminary diagnosis are Urosepsis, Dehydration. - Bed requested for Telemetry/MedSurg (Inpatient). - Status is Inpatient Admission. jb4 - Condition is Stable. - Problem is new. - Symptoms have improved. UTI on Admission? Yes Addendum: 12/09/2018 06:39 Co-signature as Attending Physician, Carlos Cornejo MD I agree with the assessment and c mejia plan of care. Signatures: Dispatcher [employer] EDMS Shakira Le Angela, RN RN aj1 Carlos Cornejo MD MD cha Marinas, Patrick, [employer] pm1 Franklin Archibald RN RN jb4 Corrections: (The following items were deleted from the chart) 12/02 18:22 17:38 NS 0.9% 500 ml IV at bolus once ordered. pm1 [facility] 18:24 17:57 Counseling: I had a detailed discussion with the patient and/or guardian pm1 regarding: the historical points, exam findings, and any diagnostic results supporting the discharge/admit diagnosis, lab results, the need for outpatient follow up, for definitive care, PCP at half-way, pm1 18:29 18:26 Hospitalization Ordered by Savage Perales MD for Observation. Preliminary diagnosis pm1 is Urinary tract infection, site not specified; Dehydration. Bed requested for Telemetry/MedSurg (observation). Status is Observation. Condition is Stable. Problem is new. Symptoms have improved. UTI on Admission? Yes. pm1 18:51 18:29 12/02/2018 18:26 Hospitalization Ordered by Savage Perales MD for Inpatient bd Admission. Preliminary diagnosis is Urosepsis; Dehydration. Bed requested for Telemetry/MedSurg (Inpatient). Status is Inpatient Admission. Condition is Stable. Problem is new. Symptoms have improved. UTI on Admission? Yes. pm1 20:20 18:51 12/02/2018 18:26 Hospitalization Ordered by Savage Perales MD for Inpatient jb4 Admission. Preliminary diagnosis is UrosepsisDehydration. Bed requested for Telemetry/MedSurg (Inpatient). Status is Inpatient Admission. Condition is Stable. Problem is new. Symptoms have improved. UTI on Admission? Yes. bd
[2018-12-02] MEDS ORDERED: NA CHLORIDE 0.9% 2,000 ML ONE (18:36)
[2018-12-02 18:40] LABS: Urine Blood 2+ (NEG); Urine Glucose NEGATIVE (NEG); Urine Protein 2+ (NEG); Urine Specific Gravity 1.015 (1.005-1.030); Urine pH 6.5 (5.0-7.0)
[2018-12-02] MEDS ORDERED: ACETAMINOPHEN 500 MG TAB PO PRN (20:16)
[2018-12-02] MEDS ORDERED: ONDANSETRON 4 MG/2 ML VIAL IV PRN (20:16)
[2018-12-02 20:45] VITALS: O2SAT 95
[2018-12-02] MEDS ORDERED: CEFTRIAXONE 1 GM/NS 50 ML 1 GM/50 ML BAG IV SCH (21:00)
[2018-12-02] MEDS: NA CHLORIDE 0.9% 1,000 ML IV SCH (21:35)
[2018-12-02] MEDS ORDERED: CEFTRIAXONE/SWI 1gm 1 GM/10 ML SYR ONE (21:36)
[2018-12-03 00:16] VITALS: BMI 32.5
[2018-12-03 04:50] LABS: Absolute Lymphocytes (CBC) 1.9 K/uL (0.7-4.9); Absolute Monocytes 0.9 K/uL (0.1-1.3); Absolute Neutrophil 7.2 K/uL (1.8-8.0); Basophils % 0.4 % (0-1.3); Eosinophils % 0.6 % (0-4.4); Hematocrit 37.2 % (36.0-45.0); Lymphocytes % 18.5 % (15.3-44.8); MPV 9.1 fL (7.6-11.3); Monocytes % 9.2 % (3.3-12.3); RBC Red Blood Cell Count 3.84 M/uL (3.86-4.86)
[2018-12-03 05:00] LABS: AST/SGOT 11 U/L (15-37); Albumin 1.8 g/dL (3.4-5.0); Alkaline Phosphatase 68 U/L (45-117); BUN Blood Urea Nitrogen 17 mg/dL (7-18); Bicarbonate 28 mmol/L (21-32); Bilirubin Total 0.4 mg/dL (0.2-1.0); Glucose Level 78 mg/dL (74-106); Potassium 4.3 mmol/L (3.5-5.1); Sodium Level 146 mmol/L (136-145)
[2018-12-03 05:04] LABS: ALT/SGPT < 6 U/L (12-78)
[2018-12-03] MEDS: NA CHLORIDE 0.9% 1,000 ML IV SCH ×2 (05:56→17:00)
[2018-12-03] MEDS: LEVOTHYROXINE SOD 0.075 MG TAB PO SCH (05:56)
[2018-12-03] MEDS: CEFTRIAXONE/SWI 1gm 1 GM/10 ML SYR IV SCH ×2 (08:34→21:41)
--- NOTE | 2018-12-03 10:13 | P.HP ---
Certification for Inpatient Patient admitted to: Observation With expected LOS: <2 Midnights Patient will require the following post-hospital care: None Practitioner: I am a practitioner with admitting privileges, knowledge of patient current condition, hospital course, and medical plan of care. Services: Services provided to patient in accordance with Admission requirements found in Title 42 Section 412.3 of the Code of Federal Regulations Patient History Date of Service: 12/02/18 Reason for admission: altered mental status; UTI; toxic encephalopathy History of Present Illness: Patient is an 88-year-old female who came to the hospital with altered mental status. Patient also has some suprapubic tenderness as well as a temp of a 102 . She was brought into the emergency room for further evaluation. In the emergency room her workup revealed a urinary tract infection. Patient has had prior urinary tract infections. She lives at a [facility]. Concern for multi -drug resistant UTI especially in light of the high temperature and her altered mentation. She will need to be admitted to the hospital for further evaluation to weaken exactly figure out what is going on with the patient. Pt lives at the [facility]. Patient is unable to see and normally depends on others to feed her. She gets out of the bed and into a wheelchair. But mainly patient is dependent on others for her daily activity. Allergies Penicillins Allergy (Intermediate, Verified 12/02/18 20:32) Rash Home Medications: Abh Gel 1 shonna TOP Q8HP PRN 12/03/18 Acidophilus/Bifido Longum [Lactobacillus Capsule] 16 mg PO BID 12/03/18 Aspirin 81 mg PO DAILY 12/03/18 Cyclosporine/Chondroit Sulf A [Cyclosporine 0.1% in Klarity] 1 drop OP BID 12/03 Dextromethorphan HBr [Cough Relief] 15 mg PO Q6HP PRN 12/03/18 Divalproex Sodium [Depakote Sprinkle] 4 cap PO DAILYPRN PRN 12/03/18 Docusate Sodium [Colace Clear] 50 mg PO BID 12/03/18 Donepezil HCl [Aricept] 10 mg PO BEDTIME 12/03/18 Ipratropium/Albuterol Sulfate [Iprat-Albut 0.5-3(2.5) mg/3 ml] 3 ml IH Q6HP PRN 12/03/18 Levothyroxine Sodium 150 mcg PO DAILY 12/03/18 Lisinopril [Prinivil] 10 mg PO DAILY 12/03/18 Loratadine 10 mg PO DAILYPRN PRN 12/03/18 Melatonin 3 mg PO BEDTIME 12/03/18 Montelukast Sodium 10 mg PO BEDTIME PRN PRN 12/03/18 Multivitamin with Minerals [Multivitamins with Minerals] 1 each PO DAILY Polyethyl Gly 3350 [Glycolax*] 17 gm PO DAILY 12/03/18 Sennosides 8.6 mg PO DAILY 12/03/18 Sertraline HCl 100 mg PO DAILY 12/03/18 Tramadol HCl [Ultram] 50 mg PO Q8HP 12/03/18 - Past Medical/Surgical History Has patient received pneumonia vaccine in the past: Yes Diabetic: No -: HTN -: Dementia -: Mental Illness -: glaucoma -: hypothyroidism -: psychosis -: blindness -: chronic pain -: irritable bowel syndrome -: major depressive disorder, insomia, anxiety disorder, acute cystitis, -: gen. weakness, lack of coodination unspecified, -: anbormalities of gait na dmobility -: blx knee surgery - Family History Father History Unknown: Yes - Social History Smoking Status: Former smoker Alcohol use: No CD- Drugs: No Caffeine use: No Place of Residence: [facility] Review of Systems 10-point ROS is otherwise unremarkable Physical Examination - Vital Signs Temperature: 98.8 F Blood Pressure: 115/59 Pulse: 83 Respirations: 18 Pulse Ox (%): 93 - Physical Exam General: Alert, In no apparent distress, Oriented x1, Confused HEENT: Atraumatic, PERRLA, Mucous membr. moist/pink, EOMI, Sclerae nonicteric Neck: Supple, 2+ carotid pulse no bruit, No LAD, Without JVD or thyroid abnormality Respiratory: Clear to auscultation bilaterally, Normal air movement Cardiovascular: Regular rate/rhythm, Normal S1 S2, No murmurs Gastrointestinal: Normal bowel sounds, Soft and benign, Non-distended, No tenderness Musculoskeletal: No clubbing, No swelling, No tenderness Integumentary: No rashes Neurological: Normal speech, Normal tone, Sensation intact, Cranial nerves 3-12 intact (poor vision), Abnormal gait, Abnormal strength, Dementia Lymphatics: No axilla or inguinal lymphadenopathy - Studies Laboratory Data (last 24 hrs) 12/02/18 15:25: PT 12.0, INR 1.02, APTT 30.8 12/02/18 15:25: WBC 11.2 H, Hgb 12.4, Hct 38.1, Plt Count 92 L 12/02/18 15:25: Sodium 141, Potassium 4.5, BUN 21 H, Creatinine 0.81, Glucose 86 , Total Bilirubin 0.4, AST 22, ALT 8 L, Alkaline Phosphatase 77, Lipase 46 L Microbiology Data (last 24 hrs): 12/02/18 14:39 Blood - Blood Anaerobic Blood Culture - Final 12/02/18 14:55 Blood - Blood Anaerobic Blood Culture - Final Assessment & Plan - Problems (Diagnosis) (1) Toxic encephalopathy Current Visit: Yes Status: Acute (2) Dementia Onset Date: 03/09/18 Current Visit: No Status: Acute Qualifiers: Dementia type: unspecified type Dementia behavioral disturbance: without behavioral disturbance Qualified Code(s): F03.90 - Unspecified dementia without behavioral disturbance (3) UTI (urinary tract infection) Onset Date: 03/09/18 Current Visit: No Status: Acute Qualifiers: Urinary tract infection type: acute cystitis Hematuria presence: without hematuria Qualified Code(s): N30.00 - Acute cystitis without hematuria (4) HTN (hypertension) Onset Date: 03/09/18 Current Visit: No Status: Chronic Qualifiers: Hypertension type: essential hypertension Qualified Code(s): I10 - Essential (primary) hypertension (5) Schizophrenia Onset Date: 03/09/18 Current Visit: No Status: Chronic Qualifiers: Schizophrenia type: other Qualified Code(s): F20.89 - Other schizophrenia; F20.8 - Other schizophrenia - Plan Plan: 1. IV antibiotics 2. IV hydration 3. Monitor electrolytes 4. Resume home medications 5. PT evaluation 6. GI and DVT prophylaxis Discharge Plan: Home Plan to discharge in: Greater than 2 days - Advance Directives Does patient have a Living Will: No Does patient have a Durable POA for Healthcare: No Critical Care: No Time Spent Managing PTS Care (In Minutes): 45
--- NOTE | 2018-12-03 12:51 | P.PN ---
Subjective Date of Service: 12/03/18 Chief Complaint: altered mental status; UTI; toxic encephalopathy Patient seen and examined at bedside. No family at bedside. Chart reviewed and case discussed with nursing staff. Patient endorsing visual hallucinations, otherwise in no acute distress. Unknown baseline. Reports no complaints this morning. Review of Systems 10-point ROS is otherwise unremarkable Physical Examination - Vital Signs Temperature: 97.6 F Blood Pressure: 154/78 Pulse: 85 Respirations: 18 Pulse Ox (%): 92 - Physical Exam General: Alert, In no apparent distress, Demented HEENT: Atraumatic, PERRLA, EOMI Neck: Supple, JVD not distended Respiratory: Clear to auscultation bilaterally, Normal air movement Cardiovascular: Regular rate/rhythm, Normal S1 S2 Gastrointestinal: Normal bowel sounds, No tenderness - Studies Laboratory Data (last 24 hrs) 12/02/18 15:25: PT 12.0, INR 1.02, APTT 30.8 12/02/18 15:25: WBC 11.2 H, Hgb 12.4, Hct 38.1, Plt Count 92 L 12/02/18 15:25: Sodium 141, Potassium 4.5, BUN 21 H, Creatinine 0.81, Glucose 86 , Total Bilirubin 0.4, AST 22, ALT 8 L, Alkaline Phosphatase 77, Lipase 46 L Microbiology Data (last 24 hrs): 12/02/18 14:39 Blood - Blood Anaerobic Blood Culture - Final 12/02/18 14:55 Blood - Blood Anaerobic Blood Culture - Final Assessment And Plan - Plan Toxic encephalopathy Dementia Continues to be altered and confused. Patient is a resident of [facility], unknown baseline. We will communicate with [facility] regarding baseline. Endorses visual hallucinations at this time - may be due to hx of schizophrenia. UTI (urinary tract infection) Continue Rocephin, IV at this time. Cultures pending We will adjust antibiotics depending on urine cultures. HTN (hypertension) Stable, continue home medications Schizophrenia continue home medications. DVT Prophylaxis: Lovenox GI Prophylaxis: protonix Diet: Regular Disposition: Pending cultures, PT evaluation. Discharge Plan: [facility]
[2018-12-04] MEDS: NA CHLORIDE 0.9% 1,000 ML IV SCH ×3 (04:25→21:36)
[2018-12-04] MEDS: LEVOTHYROXINE SOD 0.075 MG TAB PO SCH (06:31)
[2018-12-04] MEDS: CEFTRIAXONE/SWI 1gm 1 GM/10 ML SYR IV SCH ×2 (08:13→21:36)
[2018-12-04 11:43] LABS: Absolute Lymphocytes (CBC) 1.9 K/uL (0.7-4.9); Absolute Monocytes 0.8 K/uL (0.1-1.3); Absolute Neutrophil 6.1 K/uL (1.8-8.0); Basophils % 0.4 % (0-1.3); Eosinophils % 1.4 % (0-4.4); Hematocrit 39.1 % (36.0-45.0); MPV 9.3 fL (7.6-11.3); Monocytes % 8.8 % (3.3-12.3); RBC Red Blood Cell Count 4.02 M/uL (3.86-4.86)
[2018-12-04 11:59] LABS: BUN Blood Urea Nitrogen 12 mg/dL (7-18); Bicarbonate 27 mmol/L (21-32); Glucose Level 76 mg/dL (74-106); Potassium 3.8 mmol/L (3.5-5.1); Sodium Level 144 mmol/L (136-145)
--- NOTE | 2018-12-04 14:33 | P.PN ---
Subjective Date of Service: 12/04/18 Chief Complaint: altered mental status; UTI; toxic encephalopathy Subjective: No new changes Patient seen and examined at bedside. No family at bedside. Chart reviewed and case discussed with nursing staff. Patient continues to endorse visual hallucinations, otherwise in no acute distress. seems to be at baseline, confirmed with care home. Reports no complaints this morning. Review of Systems 10-point ROS is otherwise unremarkable Physical Examination - Vital Signs Temperature: 98.3 F Blood Pressure: 130/70 Pulse: 80 Respirations: 18 Pulse Ox (%): 94 - Physical Exam General: Demented, Confused Respiratory: Clear to auscultation bilaterally, Normal air movement Cardiovascular: Regular rate/rhythm, Normal S1 S2 Gastrointestinal: Normal bowel sounds, No tenderness - Studies Microbiology Data (last 24 hrs): 12/02/18 15:00 Catheterized Urine [place] Count - Final >100,000 CFU/ML. 12/02/18 15:00 Catheterized Urine - Final Escherichia Coli 12/02/18 14:55 Blood - Blood Anaerobic Blood Culture - Final 12/02/18 14:39 Blood - Blood Anaerobic Blood Culture - Final Assessment And Plan - Plan Toxic encephalopathy Dementia Patient's mentation back to baseline, confirmed with care home. Patient is a resident of [facility]. verbalizes no visual hallucinations at this time - may be due to hx of schizophrenia. UTI (urinary tract infection) Continue Rocephin, IV at this time. Cultures growing E.coli sensitive to IV antibioitcs. We will confirm with care home if they can do ceftriaxone 1 mg BID IM at the care home. HTN (hypertension) Stable, continue home medications Schizophrenia continue home medications. DVT Prophylaxis: Lovenox GI Prophylaxis: protonix Diet: Regular Disposition: Pending antibiotic confirmation/ PT evaluation.
[2018-12-05] MEDS: LEVOTHYROXINE SOD 0.075 MG TAB PO SCH (06:02)
[2018-12-05] MEDS: CEFTRIAXONE/SWI 1gm 1 GM/10 ML SYR IV SCH (08:27)
[2018-12-05 08:44] VITALS: BP 165/79; TEMP 97.5
--- NOTE | 2018-12-05 13:02 | P.SSS ---
Patient History Date of Service: 12/05/18 Reason for admission: altered mental status; UTI; toxic encephalopathy History of Present Illness: Patient is an 88-year-old female who came to the hospital with altered mental status. Patient also has some suprapubic tenderness as well as a temp of a 102 . She was brought into the emergency room for further evaluation. In the emergency room her workup revealed a urinary tract infection. Patient has had prior urinary tract infections. She [facility] at a prison. Concern for multi -drug resistant UTI especially in light of the high temperature and her altered mentation. She will need to be admitted to the hospital for further evaluation to weaken exactly figure out what is going on with the patient. Pt lives at the prison. Patient is unable to see and normally depends on others to feed her. She gets out of the bed and into a wheelchair. But mainly patient is dependent on others for her daily activity. Allergies Penicillins Allergy (Intermediate, Verified 12/02/18 20:32) Rash Home Medications: Abh Gel 1 shonna TOP Q8HP PRN 12/03/18 Acidophilus/Bifido Longum [Lactobacillus Capsule] 16 mg PO BID 12/03/18 Aspirin 81 mg PO DAILY 12/03/18 Cyclosporine/Chondroit Sulf A [Cyclosporine 0.1% in Klarity] 1 drop OP BID 12/03 Dextromethorphan HBr [Cough Relief] 15 mg PO Q6HP PRN 12/03/18 Divalproex Sodium [Depakote Sprinkle] 4 cap PO DAILYPRN PRN 12/03/18 Docusate Sodium [Colace Clear] 50 mg PO BID 12/03/18 Donepezil HCl [Aricept] 10 mg PO BEDTIME 12/03/18 Ipratropium/Albuterol Sulfate [Iprat-Albut 0.5-3(2.5) mg/3 ml] 3 ml IH Q6HP PRN 12/03/18 Levothyroxine Sodium 150 mcg PO DAILY 12/03/18 Lisinopril [Prinivil*] 10 mg PO DAILY 12/03/18 Loratadine 10 mg PO DAILYPRN PRN 12/03/18 Melatonin 3 mg PO BEDTIME 12/03/18 Montelukast Sodium 10 mg PO BEDTIME PRN PRN 12/03/18 Multivitamin with Minerals [Multivitamins with Minerals] 1 each PO DAILY Polyethyl Gly 3350 [Glycolax*] 17 gm PO DAILY 12/03/18 Sennosides 8.6 mg PO DAILY 12/03/18 Sertraline HCl 100 mg PO DAILY 12/03/18 Tramadol HCl [Ultram] 50 mg PO Q8HP 12/03/18 Ceftriaxone [Rocephin 1 gm/50 ml Ivpb] 1 gm IV BID 11 Days bag 12/05/18 - Past Medical/Surgical History Has patient received pneumonia vaccine in the past: Yes Diabetic: No -: HTN -: Dementia -: Mental Illness -: glaucoma -: hypothyroidism -: psychosis -: blindness -: chronic pain -: irritable bowel syndrome -: major depressive disorder, insomia, anxiety disorder, acute cystitis, -: gen. weakness, lack of coodination unspecified, -: anbormalities of gait na dmobility -: blx knee surgery - Family History Father History Unknown: Yes - Social History Smoking Status: Former smoker Alcohol use: No CD- Drugs: No Caffeine use: No [facility] Review of Systems 10-point ROS is otherwise unremarkable Physical Examination - Vital Signs Temperature: 97.5 F Blood Pressure: 165/79 Pulse: 83 Respirations: 18 Pulse Ox (%): 93 - Physical Exam General: Oriented x1, Confused (At baseline) Neck: Supple, 2+ carotid pulse no bruit, No LAD, Without JVD or thyroid abnormality Respiratory: Clear to auscultation bilaterally, Normal air movement Cardiovascular: Regular rate/rhythm, Normal S1 S2 Gastrointestinal: Normal bowel sounds, No tenderness Treatment Summary: Patient was admitted for altered mentation on top of her baseline dementia. This was likely secondary to urinary tract infection. She was started on IV antibiotics. Cultures were positive for E. coli that was sensitive to Rocephin. She did have some hallucinations, this could have been secondary to her history of schizophrenia. Her mentation returned to her baseline, confirmed with prison. A PICC line was placed for an 14 day course of IV Rocephin at the prison. She otherwise remained stable throughout the stay. She will follow up with her primary care physician. No other medication changes made - Disposition Discharge Date: 12/05/18 Disposition: TRANSFER TO HALFWAY Condition: FAIR Patient Discharge Instructions: Please follow up with the primary care physician in 2-3 days. Please return to the emergency room for worsening symptoms Diet: AHA Activity: Ad henry Time Spent Managing Pts Care (In Minutes): 55
--- NOTE | 2018-12-07 11:01 | RAD REPORT ---
EXAM DESCRIPTION: RAD - Chest Single View - 12/05/2018 1:47 am CLINICAL HISTORY: S/P PICC insertion COMPARISON: None. TECHNIQUE: XR CHEST 1 VIEW 12/05/2018 12:08 AM CDT FINDINGS: The heart is enlarged. There is a right upper lobe consolidation. There is no pleural effu gavino. There is no pneumothorax. There are no acute osseous findings. Right PICC line tip is in the lo wer SVC. IMPRESSION: Right upper lobe pneumonia. Right PICC line in appropriate position. Electronically signed by: Orion Mills MD 12/05/2018 2:10 AM CDT Due to temporary technical issues with the PACS/Fluency reporting system, reports are being signed by the in house radiologist as a courtesy to ensure prompt reporting. The interpreting radiologist is f ully responsible for the content of the report.
== END 2018-12-05 13:12 ==
LOC: ER 13:20 → ERHOLD 18:20 → 4TH 20:09
PROVIDERS: ADMIT Family Medicine; ATTEND Hospitalist
PROC: 02HV33Z Insertion of Infusion Device into Superior Vena Cava, Percutaneous Approach (ICD-10-PCS; principal; 2018-12-04)
DX: N39.0 Urinary tract infection, site not specified (principal); B96.20 Unspecified Escherichia coli [E. coli] as the cause of diseases classified elsewhere; G92 Toxic encephalopathy; I10 Essential (primary) hypertension; E03.9 Hypothyroidism, unspecified; H54.7 Unspecified visual loss; F03.90 Unspecified dementia, unspecified severity, without behavioral disturbance, psychotic disturbance, mood disturbance, and anxiety; F20.9 Schizophrenia, unspecified; Z88.0 Allergy status to penicillin; Z79.82 Long term (current) use of aspirin
CPT/HCPCS: 96365; 96361; 87040 ×2; 87088; 85025 ×3; 87086; 80048 ×2; 36415 ×2; 82550; 85610; 80076; 83605; 85730; 87077; 87186; 84484; 82553; 83690; 80053; 84145; 71045 ×2; 51702; 99285; 36569; J0696 ×6; J7030 ×6; J0744; G0378 ×2; 81003; 81015

== ENCOUNTER 2019-04-16 | Emergency (ER) | payer OTHER ==
[2019-04-16] MEDS ORDERED: IBUPROFEN 200 MG TAB PO ONE (01:32)
[2019-04-16] MEDS ORDERED: IBUPROFEN 400 MG TAB ONE (01:32)
--- NOTE | 2019-04-16 02:44 | ER ---
Nurse's Notes [facility] Name: Roselia Boyle Age: 88 yrs Sex: Female : 1930 Arrival Date: 04/16/2019 Time: 00:06 Bed 25 Private MD: Diagnosis: Pain in right shoulder;Sprain of other specified parts of right shoulder girdle Presentation: 04/16 00:06 Presenting complaint: EMS states: "the nursing facility reported to us that she fell jd3 out of bed and hit her right shoulder. no LOC or blood thinners.". Transition of care: patient was received from another setting of care ([facility]. Onset of symptoms was April 16, 2019. Risk Assessment: Do you want to hurt yourself or someone else? Patient reports no desire to harm self or others. Initial Sepsis Screen: Does the patient meet any 2 criteria? No. Patient's initial sepsis screen is negative. Does the patient have a suspected source of infection? No. Patient's initial sepsis screen is negative. Care prior to arrival: None. 00:06 Method Of Arrival: EMS: [facility] jd3 00:06 Acuity: HANS 2 jd3 Historical: - Allergies: 00:11 PENICILLINS; jd3 - Home Meds: 00:11 ABH Gel apply to inner wrist once a day on Friday, , and Friday [Active]; jd3 ABH Gel every 8 hours as needed for agitation [Active]; Aricept 10 mg Oral tab 2 tab at bedtime [Active]; aspirin 81 mg Oral TbEC 1 tab once daily [Active]; cyclosporine ophthalmic 1 drop every 12 hours [Active]; Depakote Sprinkles 125 mg Oral cpSP 4 caps daily [Active]; Depakote Sprinkles 125 mg Oral cpSP 5 caps daily [Active]; docusate sodium 100 mg Oral tab 1 tab once daily [Active]; ipratropium-albuterol 0.5 mg-3 mg(2.5 mg base)/3 mL Inhl nebu 3 mL every 6 hours as needed for cough [Active]; lactobacillus acidophilus (bulk) miscellaneous twice a day [Active]; levothyroxine 150 mcg tab 1 tab once daily [Active]; lisinopril 10 mg Oral tab 1 tab once daily [Active]; loratadine 10 mg Oral tab 1 tab once daily [Active]; melatonin 3 mg Oral tab nightly [Active]; Miralax 17 gram Oral pwpk 1 packet once daily [Active]; montelukast 10 mg Oral tab 1 tab once daily [Active]; multivitamin Oral cap daily [Active]; sennosides 8.6 mg Oral tab 2 tabs once daily [Active]; sertraline 100 mg Oral tab 1 tab once daily [Active]; tramadol 50 mg Oral tab 1 tab every 8 hours as needed for pain [Active]; - PMHx: 00:11 Chronic pain; Hypothyroidism; Depression; Glaucoma; DYSPHAGIA; Dementia; ibs; Anxiety; jd3 acute cystitis; Pneumonia; Hypertension; BLINDNESS; psychosis; - Immunization history:: Adult Immunizations unknown. - Social history:: Smoking status: unknown. - Ebola Screening: : Patient negative for fever greater than or equal to 101.5 degrees Fahrenheit, and additional compatible Ebola Virus Disease symptoms. Screenin:17 Abuse screen: Denies threats or abuse. Nutritional screening: No deficits noted. jd3 Tuberculosis screening: No symptoms or risk factors identified. Fall Risk Fall in past 12 months (25 points). Ambulatory Aid- Crutches/Cane/Walker (15 pts). Gait- Weak (10 pts.). Mental Status- Overestimates/Forgets Limitations (15 pts.). Total Jackson Fall Scale indicates High Risk Score (45 or more points). Fall prevention measures have been instituted. Side Rails Up X 2 Placed Close to Nursing Station Frequent Obs/Assessments Occuring. Assessment: 00:14 General: Appears in no apparent distress. uncomfortable, Behavior is calm, cooperative, jd3 appropriate for age. Pain: Complains of pain in right shoulder Quality of pain is described as aching, tender, Aggravated by increased activity, repositioning. Neuro: Level of Consciousness is awake, alert, obeys commands, confused, Oriented to person, place, Denies blurred vision dizziness, numbness nursing facility denies LOC. Cardiovascular: Capillary refill < 3 seconds Patient's skin is warm and dry. Respiratory: Airway is patent Respiratory effort is even, unlabored, Respiratory pattern is regular, symmetrical. GI: No signs and/or symptoms were reported involving the gastrointestinal system. : No signs and/or symptoms were reported regarding the genitourinary system. EENT: No signs and/or symptoms were reported regarding the EENT system. Derm: Skin is intact, Skin is dry, Skin is normal, Skin temperature is warm. Musculoskeletal: Circulation, motion, and sensation intact. Range of motion: limited in right shoulder. 01:15 Reassessment: Patient appears in no apparent distress at this time. No changes from jd3 previously documented assessment. Patient and/or family updated on plan of care and expected duration. Pain level reassessed. 01:43 Reassessment: Patient appears in no apparent distress at this time. No changes from jd3 previously documented assessment. Patient and/or family updated on plan of care and expected duration. Pain level reassessed. report given to Michelte, nurse for [facility]. was told that facility is arranging transportation. 02:09 Reassessment: spoke with Michelet Carson and he reported the ETA of the transport j service will be around 0430. 02:50 Reassessment: Patient appears in no apparent distress at this time. Patient and/or jd3 family updated on plan of care and expected duration. Pain level reassessed. awaiting transfer. resting in bed with eyes closed. even and unlabored respirations. 03:13 Reassessment: Patient appears in no apparent distress at this time. Patient and/or cc3 family updated on plan of care and expected duration. Pain level reassessed. Awaiting transfer. Resting in bed with eyes closed with even and unlabored respirations. No IV cannula in situ. 04:20 Reassessment: Patient appears in no apparent distress at this time. Patient and/or cc3 family updated on plan of care and expected duration. Pain level reassessed. Patient resting in bed with eyes closed with even and unlabored respirations. 05:02 Reassessment: [employer] contacted. Michelet stated he would call [facility] [id number] to find ak1 out an ETA for transportation of pt. 05:45 Reassessment: Patient appears in no apparent distress at this time. Patient and/or cc3 family updated on plan of care and expected duration. Pain level reassessed. Staff from [facility] [employer] came for patient transport. No IV cannula in situ. Patient left ER vitally stable by wheelchair escorted by the [facility] staff. No valuables left in the patient's room. Patient denies pain at this time. Patient states feeling better. Vital Signs: 00:12 BP 148 / 101; Pulse 89; Resp 19 S; Temp 98.9(O); Pulse Ox 99% on R/A; Weight 79.38 kg jd3 (R); Height 5 ft. 3 in. (160.02 cm) (R); Pain 5/10; 00:32 BP 122 / 56; jd3 01:24 Pulse 75; Resp 17 S; Pulse Ox 95% on R/A; jd3 02:45 BP 134 / 83; Pulse 73; Resp 16 S; Pulse Ox 95% on R/A; jd3 03:15 BP 138 / 87; Pulse 75; Resp 17 S; Pulse Ox 96% on R/A; cc3 04:12 Pulse 71; Resp 18 S; Pulse Ox 96% on R/A; cc3 05:11 Pulse 66; Resp 16 S; Pulse Ox 97% on R/A; cc3 05:45 Pulse 69; Resp 17 S; Pulse Ox 97% on R/A; cc3 00:12 Body Mass Index 31.00 (79.38 kg, 160.02 cm) jd3 04:12 patient refused blood pressure to be taken cc3 05:11 patient refused blood pressure to be taken cc3 05:45 patient refused blood pressure to be taken cc3 ED Course: 00:06 Patient arrived in ED. jd3 00:08 Triage completed. jd3 00:09 Chase Gould MD is Attending Physician. kdr 00:14 Arm band placed on. jd3 00:17 Patient has correct armband on for positive identification. Placed in gown. Bed in low jd3 position. Call light in reach. Side rails up X2. 00:32 Levy Robison RN is Primary Nurse. jd3 00:44 X-ray completed. Portable x-ray completed in exam room. Patient tolerated procedure mh1 well. 01:24 CT completed. Pt tolerated procedure poorly. Patient moved to CT via stretcher. Patient eh moved back from CT. 01:25 No provider procedures requiring assistance completed. Patient did not have IV access jd3 during this emergency room visit. 03:43 Shoulder Right (2 View) XRAY In Process Unspecified. EDMS 04:02 CT Head C Spine In Process Unspecified. EDMS Administered Medications: 01:35 Not Given (Physician Discretion): traMADol 50 mg PO once; RASS on ADMIN: Combtv4, Very jd3 Agttd3, Agttd2, Rstlss1, AlertClm0, Drwsy-1, Lt Sdtn-2, Mod Sdtn-3, Dp Sdtn-4, UnArsble-5 01:36 Drug: Ibuprofen 600 mg Route: PO; jd3 03:15 Follow up: Response: No adverse reaction; Pain is decreased cc3 Outcome: 01:23 Discharge ordered by . kdr 05:45 Discharged to [facility] cc3 05:45 Condition: stable 05:45 Discharge instructions given to patient, [facility] staff Instructed on discharge instructions, follow up and referral plans. medication usage, Demonstrated understanding of instructions, follow-up care, medications, Prescriptions given X 1. 06:00 Patient left the ED. cc3 Signatures: Dispatcher [employer] EDMS Chase Gould MD MD kdr Hagler, Ervin eh Harvey, Martha 1 Enriqueta Orozco RN RN Levy Wagoner RN RN jd3 Genevieve Masters cc3 Corrections: (The following items were deleted from the chart) 00:17 00:06 Transition of care: patient was not received from another setting of care. jd3 jd3 06:12 05:45 Discharge instructions given to patient, [facility] staff Instructed on cc3 discharge instructions, follow up and referral plans. medication usage, Demonstrated understanding of instructions, follow-up care, medications, Prescriptions given X 1, cc3
--- NOTE | 2019-04-16 02:45 | EDPHYS ---
Physician Documentation [facility] Name: Roselia Boyle Age: 88 yrs Sex: Female : 1930 Arrival Date: 04/16/2019 Time: 00:06 Bed 25 Private MD: ED Physician Chase Gould HPI: 04/16 01:45 This 88 yrs old Female presents to ER via EMS with complaints of right kdr shoulder pain. 01:45 EMS reports that the patient fell at the long-term and now c/o right upper extremity kdr pain. The sending nurse however states that the patient was attempting to strike him/her with the supposedly injured arm [employer] HELPER. Onset: The symptoms/episode began/occurred suddenly, just prior to arrival. Severity of symptoms: At their worst the symptoms were mild in the emergency department the symptoms are unchanged. It is unknown whether or not the patient has had similar symptoms in the past. It is unknown whether or not the patient has recently seen a physician. Historical: - Allergies: 00:11 PENICILLINS; jd3 - Home Meds: 00:11 ABH Gel apply to inner wrist once a day on Friday, , and Friday [Active]; jd3 ABH Gel every 8 hours as needed for agitation [Active]; Aricept 10 mg Oral tab 2 tab at bedtime [Active]; aspirin 81 mg Oral TbEC 1 tab once daily [Active]; cyclosporine ophthalmic 1 drop every 12 hours [Active]; Depakote Sprinkles 125 mg Oral cpSP 4 caps daily [Active]; Depakote Sprinkles 125 mg Oral cpSP 5 caps daily [Active]; docusate sodium 100 mg Oral tab 1 tab once daily [Active]; ipratropium-albuterol 0.5 mg-3 mg(2.5 mg base)/3 mL Inhl nebu 3 mL every 6 hours as needed for cough [Active]; lactobacillus acidophilus (bulk) miscellaneous twice a day [Active]; levothyroxine 150 mcg tab 1 tab once daily [Active]; lisinopril 10 mg Oral tab 1 tab once daily [Active]; loratadine 10 mg Oral tab 1 tab once daily [Active]; melatonin 3 mg Oral tab nightly [Active]; Miralax 17 gram Oral pwpk 1 packet once daily [Active]; montelukast 10 mg Oral tab 1 tab once daily [Active]; multivitamin Oral cap daily [Active]; sennosides 8.6 mg Oral tab 2 tabs once daily [Active]; sertraline 100 mg Oral tab 1 tab once daily [Active]; tramadol 50 mg Oral tab 1 tab every 8 hours as needed for pain [Active]; - PMHx: 00:11 Chronic pain; Hypothyroidism; Depression; Glaucoma; DYSPHAGIA; Dementia; ibs; Anxiety; jd3 acute cystitis; Pneumonia; Hypertension; BLINDNESS; psychosis; - Immunization history:: Adult Immunizations unknown. - Social history:: Smoking status: unknown. - Ebola Screening: : Patient negative for fever greater than or equal to 101.5 degrees Fahrenheit, and additional compatible Ebola Virus Disease symptoms. ROS: 01:45 Constitutional: The patient is generally uncopperative with the exam and respopnding to kdr quewstioins thought she states her name on request and moves all extremities as appropirate and as commanded 01:45 Unable to obtain ROS due to baseline dementia. Exam: 01:45 Constitutional: This is a well developed, well nourished patient who is awake, alert, kdr and in no acute distress. Head/Face: Normocephalic, atraumatic. Eyes: Pupils equal round and reactive to light, extra-ocular motions intact. Lids and lashes normal. Conjunctiva and sclera are non-icteric and not injected. Cornea within normal limits. Periorbital areas with no swelling, redness, or edema. Neck: Trachea midline, no thyromegaly or masses palpated, and no cervical lymphadenopathy. Supple, full range of motion without nuchal rigidity, or vertebral point tenderness. No Meningismus. Chest/axilla: Normal chest wall appearance and motion. Nontender with no deformity. No lesions are appreciated. Cardiovascular: Regular rate and rhythm with a normal S1 and S2. No gallops, murmurs, or rubs. Normal PMI, no JVD. No pulse deficits. Respiratory: Lungs have equal breath sounds bilaterally, clear to auscultation and percussion. No rales, rhonchi or wheezes noted. No increased work of breathing, no retractions or nasal flaring. Abdomen/GI: Soft, non-tender, with normal bowel sounds. No distension or tympany. No guarding or rebound. No evidence of tenderness throughout. Back: No spinal tenderness. No costovertebral tenderness. Full range of motion. Skin: Warm, dry with normal turgor. Normal color with no rashes, no lesions, and no evidence of cellulitis. 01:45 Musculoskeletal/extremity: Extremities: grossly normal except: ROM: limited active range of motion, limited passive range of motion, in the anterior aspect of right shoulder and posterior aspect of right shoulder. Vital Signs: 00:12 BP 148 / 101; Pulse 89; Resp 19 S; Temp 98.9(O); Pulse Ox 99% on R/A; Weight 79.38 kg jd3 (R); Height 5 ft. 3 in. (160.02 cm) (R); Pain 5/10; 00:32 BP 122 / 56; jd3 01:24 Pulse 75; Resp 17 S; Pulse Ox 95% on R/A; jd3 02:45 BP 134 / 83; Pulse 73; Resp 16 S; Pulse Ox 95% on R/A; jd3 03:15 BP 138 / 87; Pulse 75; Resp 17 S; Pulse Ox 96% on R/A; cc3 04:12 Pulse 71; Resp 18 S; Pulse Ox 96% on R/A; cc3 05:11 Pulse 66; Resp 16 S; Pulse Ox 97% on R/A; cc3 05:45 Pulse 69; Resp 17 S; Pulse Ox 97% on R/A; cc3 00:12 Body Mass Index 31.00 (79.38 kg, 160.02 cm) jd3 04:12 patient refused blood pressure to be taken cc3 05:11 patient refused blood pressure to be taken cc3 05:45 patient refused blood pressure to be taken cc3 MDM: 01:23 Patient medically screened. kdr 01:45 Data reviewed: vital signs, nurses notes, radiologic studies. Counseling: I had a kdr detailed discussion with the patient and/or guardian regarding: the historical points, exam findings, and any diagnostic results supporting the discharge/admit diagnosis, radiology results, the need for outpatient follow up. 04/16 00:28 Order name: Shoulder Right (2 View) XRAY kdr 04/16 00:32 Order name: CT Head C Spine kdr 04/16 01:13 Order name: Sling: Sling to right arm; Complete Time: 01:41 kdr Administered Medications: 01:35 Not Given (Physician Discretion): traMADol 50 mg PO once; RASS on ADMIN: Combtv4, Very jd3 Agttd3, Agttd2, Rstlss1, AlertClm0, Drwsy-1, Lt Sdtn-2, Mod Sdtn-3, Dp Sdtn-4, UnArsble-5 01:36 Drug: Ibuprofen 600 mg Route: PO; jd3 03:15 Follow up: Response: No adverse reaction; Pain is decreased cc3 Disposition: 04/16/19 01:23 Discharged to Home. Impression: Pain in right shoulder, Sprain of other specified parts of right shoulder girdle. - Condition is Stable. - Discharge Instructions: Joint Pain, Shoulder Pain, Krne-zf-Airn. - Prescriptions for Ibuprofen 600 mg Oral Tablet - take 1 tablet by ORAL route every 6 hours As needed take with food; 15 tablet. - Medication Reconciliation Form, Thank You Letter form. - Follow up: Private Physician; When: 2 - 3 days; Reason: If symptoms return, Further diagnostic work-up, Recheck today's complaints, Continuance of care, Re-evaluation by your physician. - Problem is new. - Symptoms have improved. Signatures: Dispatcher [employer] EDMS Chase Gould MD MD kdr Levy Robison RN RN jGenevieve Doimngo cc3 Corrections: (The following items were deleted from the chart) 06:00 01:23 04/16/2019 01:23 Discharged to Home. Impression: Pain in right shoulder; Sprain cc3 of other specified parts of right shoulder girdle. Condition is Stable. Forms are Medication Reconciliation Form, Thank You Letter, Antibiotic Education, Prescription Opioid Use. Follow up: Private Physician; When: 2 - 3 days; Reason: If symptoms return, Further diagnostic work-up, Recheck today's complaints, Continuance of care, Re-evaluation by your physician. Problem is new. Symptoms have improved. kdr
--- NOTE | 2019-04-16 09:39 | RAD REPORT ---
EXAM DESCRIPTION: Shoulder Right 2 View - 04/16/2019 12:47 am CLINICAL HISTORY: Fall, right shoulder pain COMPARISON: None. TECHNIQUE: Internal and external rotation views of the right shoulder were obtained. FINDINGS: There is no fracture or dislocation. Mild AC joint degenerative changes are present. Acro mial humeral joint space narrowing present with no abnormal soft tissue calcification. No acute or caldwell spicious findings. IMPRESSION: No fracture or acute finding. Suspected chronic right shoulder rotator cuff tear.
[2019-04-16 10:16] VITALS: TEMP 98.9
[2019-04-16 10:20] VITALS: BP 138/87
[2019-04-16 10:22] VITALS: O2SAT 97
--- NOTE | 2019-04-16 12:01 | RAD REPORT ---
EXAM DESCRIPTION: CT - [facility] - 04/16/2019 3:20 am CLINICAL HISTORY: Fall TECHNIQUE: Multiple axial CT images of the brain and cervical spine were performed followed by sagit carlos and coronal reconstructed images. The CT study is performed according to ALARA (as low as reasona annelise achievable) or ALARA/IMAGE GENTLY, with automatic adjustment of mA and/or kV according to patient size. Performed on: 04/16/2019 at 1:06 AM COMPARISON: None. FINDINGS: CT HEAD: There is no evidence of mass, acute mass effect or midline shift. There are no acute extra-axial flui d collections. There is no evidence of acute intracranial hemorrhage. The cerebral sulci and ventricles are prominent consistent with moderate cerebral volume loss. There are scattered areas of decreased attenuation within the subcortical and periventricular white m atter most consistent with chronic moderate microangiopathy. There is complete opacification of the right sphenoid sinus. There is trace mucosal thickening of the ethmoid sinuses and right maxillary sinus. There is opacification of the mastoid air cells bilateral ly and partial opacification of the right middle ear cavity. The orbital contents are grossly unremarkable. There are postsurgical changes consistent with bilater al scleral banding. No acute osseous abnormalities are identified. There is mild right frontal parietal scalp soft tissue swelling. CT CERVICAL SPINE: The cervical vertebrae are normal in height. There is straightening of the normal cervical lordosis. There is multilevel moderate to marked disc space narrowing throughout the cervical spine most pronou nced from C4-C5 through C7-T1 and to a lesser degree C3-C4. There is mild degenerative endplate spurr ing at these levels. The atlanto-axial articulation is preserved and the odontoid process is intac t. There is normal alignment of the facet joints on the parasagittal images. There are degenerative braxton ges of the uncovertebral joints and facet joints. There is no evidence of acute fracture or subluxation. There is mild C4-C5 and C5-C6 canal stenosis s econdary to disc osteophyte complexes. There is bilateral C5-C6 and right C4-C5 neural foraminal st enosis secondary to uncovertebral joint and facet joint hypertrophy. The paravertebral and paraspinal soft tissues are unremarkable. The lung apices are clear. IMPRESSION: 1. There is no evidence of acute intracranial pathology. There is mild right frontal par ietal scalp soft tissue swelling. 2. 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 3. Complete opacification of the right sphenoid sinus and bilateral mastoid sinus opacification as we ll as partial opacification of the right middle ear cavity. 4. No evidence of acute cervical spine injury. There are degenerative changes throughout the cervical spine as described above. Electronically signed by: Isadora Rodriguez DO 04/16/2019 1:54 AM CDT Due to temporary technical issues with the PACS/Fluency reporting system, reports are being signed by the in house radiologist as a courtesy to ensure prompt reporting. The interpreting radiologist is f ully responsible for the content of the report.
== END 2019-04-16 06:00 | disposition home or self-care (01) ==
LOC: ER
DX: S43.401A Unspecified sprain of right shoulder joint, initial encounter (principal); W17.89XA Other fall from one level to another, initial encounter; Y93.89 Activity, other specified; Y92.122 Bedroom in nursing home as the place of occurrence of the external cause; Z88.0 Allergy status to penicillin
CPT/HCPCS: 70450; 72125; 99284